=== PATIENT | female | born 1965 ===

== ENCOUNTER 2024-12-03 08:53 | Outpatient (AMB) | payer OTHER, SELFPAY ==
--- OUTSIDE RECORDS SUMMARY | 2024-01-02 11:12 | XMS_ITS | Encounter Summary ---
Author Organization Address [address] [place] [address] Care Team Providers Care Salesperson [employer] Furnishings Name Role Phone Erin Khan MD Primary Care Provider [phone] Encounter Details Date Type Department Care Team (Late st Contact Info) Description 01/02/2024 11:12 AM EDT Hospital Encounter TH HISTORIC ENCOUNTERS EASTERN CONVERSION ONLY Maria De Jesus Bingham MD [address] [place] [phone] Social History Tobacco Use Types Packs/Day Years Used Date Smoking Tobacco: Former Cigarettes Smokeless Tobacco: Never Alcohol Use Standard Drinks/Week Comments Yes 0 (1 standard drink = 0.6 oz pur e alcohol) occasional Comments No Sex and Gender Information Value [...] Care Team (Late st Contact Info) Description 01/21/2025 9:30 AM EDT Office Visit Internal Medicine - [place] [address] [place] [address] Erin Khan MD [address] [place] [address] documented as of this encounter Visit Diagnoses Not on filedocumented in this encounter Care Teams Salesperson Men'[employer] Furnishings Relationship Specialty Start Date End Date Erin Khan MD [address] [place] [address] PCP - General 10/04/21 documented as of this encounter
--- OUTSIDE RECORDS SUMMARY | 2024-01-07 11:30 | XMS_ITS | Encounter Summary ---
Author Organization [facility] Address [address] [place] [address] Care Team Providers Care Head Porter Name Role Phone Erin Khan MD Primary Care Provider [phone] Encounter Details Date Type Department Care Team (Late st Contact Info) Description 01/07/2024 11:30 AM EDT Hospital Encounter [facility] [address] [place] [phone] Social History Tobacco Use Types Packs/Day Years Used Date Smoking Tobacco: Never Smokeless Tobacco: Never Alcohol Use Standard Drinks/Week Comments Not Currently 0 (1 standard drink = 0.6 oz pur e alcohol) holidays Comments Unknown Sex and Gender Information Value Date Recorded Sex Assigned at Not on file Legal Sex Female 6:44 PM EST Gender Identity Not on file Sexual Orientation Not on file documented as of this encounter Plan of Treatment Not on file documented as of this encounter Procedures Procedure Name Priority Date/Time Associated Diagnosis Comments XR CHEST 2 VIEWS STAT 01/07/2024 11:3 6 AM EDT Acute cough documented in this encounter Results * XR Chest 2 views (01/07/2024 11:36 AM EDT) Anatomical Region Laterality Modality Chest Computed Radiogr aphy 01/07/2024 11:4 1 AM EDT Impressions 01/07/2024 11:41 AM EDT Impression: Clear lungs. Narrative 01/07/2024 11:41 AM EDT XR CHEST 2 VIEWS: 01/07/2024 11:30 AM CLINICAL HISTORY: cough x3 wks Comparisons: None available. Technique: PA and Lateral views. 2 views. Findings: The cardiac silhouette is normal in size. The mediastinal and hilar structures appear unremarkable. The lungs are well expanded without focal infiltrates identified. The visualized osseous structures appear unremarkable. Procedure Note Shane Grayson MD - 01/07/2024 XR CHEST 2 VIEWS: 01/07/2024 11:30 AM CLINICAL HISTORY: cough x3 wks Comparisons: None available. Technique: PA and Lateral views. 2 views. Findings: The cardiac silhouette is normal in size. The mediastinal and hilarstructures appear unremarkable. The lungs are well expanded without focalinfiltrates identified. The visualized osseous structures appearunremarkable. IMPRESSION: Impression: Clear lungs. Zuleyma Haney PA-C IMG DIAGNOSTIC IMAGING ORD ERABLES Final Result documented in this encounter Visit Diagnoses Not on filedocumented in this encounter Care Teams Head Porter Relationship Specialty Start Date End Date Erin Khan MD PCP - General Family Medicine 10/29/21 documented as of this encounter
--- OUTSIDE RECORDS SUMMARY | 2024-12-03 09:56 | XMS_ITS | Encounter Summary ---
Author Organization [facility] Address [address] [place] [address] Care Team Providers Care Baton Teacher Name Role Phone Erin Khan MD Primary Care Provider [phone] Reason for Visit * Reason Comments Med Change Request Encounter Details Date Type Department Care Team ([facility] st Contact Info) Description 10/30/2021 Refill [facility] [address] [facility] [address] [place] [address] Allyssa Paige PA [address] [facility] [address] [place] [address] Gastroesophageal reflux disease with esophagitis, unspecified whether hemorrhage; Cough in adult patient Social History Tobacco Use Types Packs/Day Years [...] on file documented as of this encounter Miscellaneous Notes * Telephone Encounter - Michelle Hein MA - 11/02/2021 8:51 AM EDT Needs another medication called in this one is not covered documented in this encounter Plan of Treatment Not on file documented as of this encounter Visit Diagnoses Diagnosis Gastroesophageal reflux disease with esophagitis, unspecified whether hemorrhage Cough in adult patient documented in this encounter Care Teams Baton Teacher Relationship Specialty Start Date End Date Erin Khan MD PCP - General Family Medicine 10/29/21 documented as of this encounter
--- OUTSIDE RECORDS SUMMARY | 2024-12-03 09:56 | XMS_ITS | Encounter Summary ---
Author Organization [facility] Address [address] [place] [address] Care Team Providers Care Household Worker Name Role Phone Erin Khan MD Primary Care Provider [phone] Encounter Details Date Type Department Care Team (Late st Contact Info) Description 01/07/[address] [place] [phone] Provider, Generic Social History Tobacco Use Types Packs/Day Years [...] on filedocumented in this encounter Care Teams Household Worker Relationship Specialty Start Date End Date Erin Khan MD PCP - General Family Medicine 10/29/21 documented as of this encounter
--- OUTSIDE RECORDS SUMMARY | 2024-12-03 09:56 | XMS_ITS | Clinical Summary ---
Author Organization [facility] [address] [facility] [place] [facility] Address [address] [place] [address] Phone Care Team Providers Care Power Shovel Mechanic Name Role Phone Erin Khan MD Primary Care Provider [phone] Allergies Active Allergy Reactions Criticality Noted Date Comments Clarithromycin Seizures High 06/08/2019 biaxin -SPECIFIC BRAND REACTION Ggoksadktym-Bftaoruof-Nqniuc er Anaphylaxis High 08/31/2021 Trelegy inhaler -throat closing Ipratropium 10/12/2021 Medications albuterol 2.5 mg /3 mL (0.083 %) nebulizer solution Take 3 mL (2.5 mg total) by nebulization every 6 (six) hours as needed for wheezing. Active albuterol HFA (PROAIR HFA ; PROVENTIL HFA ; VENTOLIN HFA) 90 mcg/actuation inhaler Inhale 2 puffs into the lungs every 6 (six) hours as needed for wheezing. Active buPROPion XL (WELLBUTRIN XL) 150 mg 24 hr tablet Take 1 tablet (150 mg total) by mouth daily. Active buPROPion XL (WELLBUTRIN XL) 300 mg 24 hr tablet Take 1 tablet (300 mg total) by mouth daily. Active carBAMazepine (TEGretol) 200 mg tablet 6 (six) times a day. Odd days takes 5 tabs and even days to take 6 tablets Active clindamycin (CLEOCIN T) 1 % gel Apply topically 2 (two) times a day. 023 Active lamoTRIgine (LaMICtal) 100 mg tablet 3 (three) times a day. 1 po qam 2po qhs 022 Active metFORMIN XR (GLUCOPHAGE-X R) 500 mg 24 hr tablet 1 (one) time each day. 023 Active montelukast (SINGULAIR) 10 mg tablet Take 1 tablet (10 mg total) by mouth every night at bedtime. 023 Active pantoprazole (PROTONIX) 40 mg EC tablet Take 1 tablet (40 mg total) by mouth 2 (two) times a day before breakfast and dinner. 022 Active multivit with calcium,iron, min (MULTIPLE VITAMIN, WOMENS ORAL) Take by mouth. Ac tive ipratropium-a lbuteroL (DUONEB) 0.5-2.5 mg/3 mL nebulizer solution ipratropium 0.5 mg-albuterol 3 mg (2.5 mg base)/3 mL nebulization soln 3 ml nebulizer once Active Ingrezza 40 mg capsule 1 (one) time each day. 024 Active aspirin 81 mg EC tablet Take 1 tablet (81 mg total) by mouth 1 (one) time each day. Active simvastatin (ZOCOR) 40 mg tablet TAKE 1 TABLET BY MOUTH IN THE EVENING 90 tablet 1 025 Active fenofibrate (LOFIBRA) 160 mg tablet TAKE 1 TABLET BY MOUTH DAILY 90 tablet 1 025 Active tirzepatide (Mounjaro) 7.5 mg/0.5 mL injectionIndi cations:Type 2 diabetes mellitus without complication, without long-term current use of insulin ([facility] V24, [facility] V28) Inject 0.5 mL (7.5 mg total) under the skin 1 (one) time per week. 6 mL 1 025 Active Mounjaro 7.5 mg/0.5 mL injectionIndi cations:Type 2 diabetes mellitus without complication, without long-term current use of insulin ([facility] V24, [facility] V28) INJECT 1 SYRINGE SUBCUTANEOUSLY ONCE A WEEK 12 mL 025 2024 Discontinued(R eorder) tirzepatide (Mounjaro) 7.5 mg/0.5 mL injectionIndi cations:Type 2 diabetes mellitus without complication, without long-term current use of insulin ([facility] V24, [facility] V28) Inject 0.5 mL (7.5 mg total) under the skin 1 (one) time per week. 6 mL 1 025 2024 Discontinued Active Problems Problem Noted Date Diagnosed Date Type 2 diabetes mellitus wit hout complication, without long-term current use of insulin ([facility] [employer] V24, [facility] [employer] V28) 02/17/2024 Assessment & Plan (02/17/2024 1:50 PM EST): 58 year old female with pmhx T2DM who presents to follow-up on her diabetes. She was started on mounjaro 7.5 mg qweekly at last office visit about 1 month ago. She has lost 7 lbs since then. No ASE noted with new dose. Advised to continue with current regimen, will recheck A1C at next visit. Mounjaro refilled today Encouraged to continue with lifestyle modifications. Seasonal allergies 07/23/2022 Alkaline phosphatase elevation 09/09/2021 Anemia 09/09/2021 Bipolar affective disorder in remission ([facility] [employer] V24) 08/31/2021 Chronic UTI 08/31/2021 Gastroesophageal reflux disease without esophagi tis 08/31/2021 Heart murmur 08/31/2021 Mixed hyperlipidemia 08/31/2021 Morbid obesity ([facility] [employer] V24, [employer] [employer] V28) 2021 Resolved Problems Problem Noted Date Diagnosed Date Resolved Date Prediabetes 09/09/2021 06/11/2024 Encounters Date Type Department Care Team Description 11/21/2024 Telephone Internal [facility] - [facility] [address] [place] [phone] Renu Sharpe MA 11/21/2024 Telephone Internal Medicine - [facility] [address] [place] [phone] Renu Sharpe MA 09/11/2024 Telephone Internal Medicine - [facility] [address] [place] [phone] Renu Shapre MA from Last 3 Months Immunizations Name Administration Dates Next Due Influenza Quadrivalent, 0.5m l, preservative free (Fluarix; FluLaval; Fluzone) ages 6mo and older (Afluria) 3yo and older 01/04/2022 Influenza trivalent, with pr eservative (Fluzone; Afluria) 6mo and older 01/26/2020 Moderna SARS-CoV-2 COVID-19, mRNA, LNP-S, preservative free 01/24/2021,06/19/2020,05/22/2020 Pfizer SARS-CoV-2 COVID-19, mRNA, LNP-S, preservative free 07/18/2021 Tdap Tetanus diptheria acell ular pertussis (Boostrix; Adacel) 7yo and older 01/04/2022,02/23/2012 Surgical History Surgery Date Site/Laterality Comments HYSTERECTOMY PROCEDURE:HYSTERECTOMY CHOLECYSTECTOMY PROCEDURE:CHOLECYSTECTOMY TONSILLECTOMY PROCEDURE:TONSILLECTOMY Medical History Medical History Date Comments Psychiatric disorder DX:Psychiat alanna disorder Cancer ([facility] V24, [facility] V28) DX:Cancer ([facility]);COMMENT:Uterine CA s/p compelte hysterectomy 1996 Asthma DX:Asthma GERD (gastroesophageal reflux disease) DX:GERD (gastroesophageal reflux disease) Obesity DX:Obesity Bipolar disorder ([facility] [employer] V2 4, [employer] [employer] V28) DX:Bipolar disorder ([facility]);COMMENT:Psychiatrist: Dr. Pierce, every Q3 months Hyperlipidemia DX:Hyperlipidemi a PONV (postoperative nausea a nd vomiting) Diabetes mellitus ([facility] [employer] V 24, [facility] V28) Prediabetes 09/09/2021 Family History Medical History Relation Name Comments Alzheimer's disease Father Diabetes Father Heart disease Father Hyperlipidemia Father Hypertension Father Lung disease Father Obesity Father Stroke Father Alcohol abuse Maternal Grandfather Depression Maternal Grandmother Thyroid disease Maternal Grandmother Depression Mother Hyperlipidemia Mother Hypertension Mother Liver disease Mother Mental illness Mother Obesity Mother Diabetes Paternal Grandfather Heart disease Paternal Grandfather Stroke Paternal Grandfather Cancer Paternal Grandmother Diabetes Paternal Grandmother Stroke Paternal Grandmother Breast cancer Sister 1 Mental illness Sister 1 Relation Name Status Comments Father Alive Maternal Grandfather Maternal Grandmother Mother Alive Paternal Grandfather Paternal Grandmother Sister 1 Alive Sister 2 Alive Social History Tobacco Use Types Packs/Day Years [...] not to disclose 2024 9:48 AM EST Obstetrics History Last Filed Vital Signs Vital Sign Reading Time Taken Comments Blood Pressure 129/78 06/11/2024 2:15 PM EDT Pulse 84 06/11/2024 2:15 PM EDT Temperature 36.4 C (97.6 F) 06/11/2024 2:15 PM EDT Respiratory Rate 16 05/08/2024 2:43 PM EST Oxygen Saturation 97% 06/11/2024 2:15 PM EDT Inhaled Oxygen Concentration - - Weight 88 kg (194 lb) 06/11/2024 2:15 PM EDT Height 157.5 cm (5' 2 ) 06/11/2024 2:15 PM EDT Body Mass Index 35.48 06/11/2024 2:15 PM EDT Plan of Treatment Upcoming Encounters Date Type Department Care Team (Late st Contact Info) Description 01/21/2025 9:30 AM EDT Office Visit Internal Medicine - [facility] [address] [place] [phone] Erin Khan MD [address] [place] [address] Health Maintenance Due Date Last Done Comments Diabetes: Annual Foot Exam 06/13/1977 Diabetes: Annual Retina Eye Exam 06/13/1977 Hepatitis B Vaccines (1 of 3 - 19+ 3-dose series) 06/13/1986 Pneumococcal Vaccine: 50+ Years (1 of 2 - PCV) 06/13/1986 Zoster Vaccines (1 of 2) 06/13/1986 Cervical Cancer Screening: Pap Smear 06/13/1988 Colorectal Cancer Screening: Colonoscopy 03/05/2022 HIV Screening 03/05/2022 Social Influencers of Health Screening 03/05/2022 Depression Screening 03/28/2024 01/13/2023 COVID-19 Vaccine (7 - Moderna risk season) 2024 02/04/2024, 01/15/2022, 07/18/2021, Additional history exists Influenza Vaccine (#1) 2024 , 01/04/2022, 01/26/2020 Diabetes: Blood Sugar Control Test (HGBA1C) 05/25/2025 11/23/2024, 06/11/2024, 01/09/2024, Additional history exists Diabetes: Annual Urine Albumin-Creatinine Ratio (uACR) 06/11/2025 06/11/2024 Breast Cancer Screening 08/07/2025 08/08/2023, 08/07 Diabetes: Annual GFR (Glomerular Filtration Rate) 10/22/2025 10/22/2024, 01/09/2024, 01/09/2024, Additional history exists Cholesterol Screening (Lipid Panel) 01/08/2029 01/09/2024, 01/09/2024, 12/31/2022, Additional history exists DTaP,Tdap,and Td Vaccines (3 - Td or Tdap) 01/05/2032 01/04/2022, 02/23/2012 Hepatitis C Screening Completed 01/01/2022, 022 HIB Vaccines Aged Out No longer eligi ble based on patient's age to complete this topic HPV Vaccines Aged Out No longer eligi ble based on patient's age to complete this topic Hepatitis A Vaccines Aged Out No long er eligible based on patient's age to complete this topic IPV Vaccines Aged Out No longer eligi ble based on patient's age to complete this topic MMR Vaccines Aged Out No longer eligi ble based on patient's age to complete this topic Meningococcal ACWY Vaccine Aged Out N o longer eligible based on patient's age to complete this topic Meningococcal B Vaccine Aged Out No l onger eligible based on patient's age to complete this topic RSV Immunization Patients Under 20 months Aged Out No longer eligible based on patient's age to complete this topic Varicella Vaccines Aged Out No longer eligible based on patient's age to complete this topic Medical Devices Implanted Type Area Forensic Science Technician Device Identifier Shelf Expiration Date Model / Serial / Lot Neurostimulator Non Rechrg - [id number] - [id number] Implanted:Qty: 1 on 05/08/2024 by Maria De Jesus Bingham MD at [facility] Neurostim N/A: Back [employer] 02/16/2027 [id number] / [id number] / N/A Kit Tined Lead - [id number] - [id number] Implanted:Qty: 1 on 05/08/2024 by Maria De Jesus Bingham MD at [facility] Neurostim N/A: Back [employer] 03/29/2026 [id number] / [id number] / N/A Procedures Procedure Name Priority Date/Time Associated Diagnosis Comments HEMOGLOBIN A1C Routine 11/23/2024 3:20 PM EDT Type 2 diabetes mellitus without complication, without long-term current use of insulin ([facility] V24, [facility] V28) CBC WITH AUTO DIFFERENTIAL Routine 10/22/2024 3:04 PM EDT Polypharmacy THYROID STIMULATING HORMONE Routine 10/22/2024 3:04 PM EDT Polypharmacy COMPREHENSIVE METABOLIC PANEL Routine 10/22/2024 3:04 PM EDT Polypharmacy CBC AND DIFFERENTIAL Routine 10/22/2024 3:04 PM EDT Polypharmacy CARBAMAZEPINE LEVEL, TOTAL Routine 10/22/2024 3:04 PM EDT Polypharmacy MICROALBUMIN CREATININE URINE RATIO Routine 06/11/2024 3:00 PM EDT Type 2 diabetes mellitus without complication, without long-term current use of insulin ([facility] V24, [facility] V28) MAMMOGRAM SCREENING BILATERAL 3D OLY WITH CAD Routine 08/08/2023 11:38 AM EDT Encounter for screening mammogram for malignant neoplasm of breast HM DEPRESSION SCREENING Routine 01/13/2023 LIPID PANEL Routine 12/31/2022 HEPATITIS C SCREENING Routine 01/01/2022 from Last 3 Months or Most Recently Relevant to Health Maintenance Results * Hemoglobin A1c (11/23/2024 3:20 PM EDT) Hemoglobin A1C 5.2 <5.7 % LAB CHEMISTRY METHOD 11/24/2024 2:10 AM EDT [facility] Mean Bld Glu Estim. 103 mg/dL LAB CHEMISTRY METHOD 11/24/2024 2:10 AM EDT [facility] Blood Venous blood specimen / Unknown Venipuncture / Unknown 11/23/2024 3:20 PM EDT 11/23/2024 3:20 PM EDT Narrative [facility] - 11/24/2024 2:10 AM EDT ADA Guidelines: Increased risk Diabetes Mellitus A1C 5.7 - 6.4% and Fasting Blood Glucose 100 - 125 mg/dl Diabetes Mellitus: A1C >6.5% and Fasting Blood Glucose >125 mg/dl us Erin Khan MD LAB BLOOD ORDERABLES Final Result [facility] [address] [place] [address], [place] [phone] * CBC auto differential (10/22/2024 3:04 PM EDT) WBC 4.8 4.0 - 10.5 K/mcL LAB HEMETOLOGY METHOD 10/22/2024 5:48 PM EDT [facility] RBC 4.21 4.20 - 5.40 M/mcL LAB HEMETOLOGY METHOD 10/22/2024 5:48 PM EDT [facility] Hemoglobin 12.5 12.5 - 16.0 g/dL LAB HEMETOLOGY METHOD 10/22/2024 5:48 PM EDT [facility] Hematocrit 37.5 37.0 - 47.0 % LAB HEMETOLOGY METHOD 10/22/2024 5:48 PM EDT [facility] MCV 89.0 78.0 - 100.0 FL LAB HEMETOLOGY METHOD 10/22/2024 5:48 PM EDT [facility] MCH 29.6 25.0 - 33.0 pcg LAB HEMETOLOGY METHOD 10/22/2024 5:48 PM EDT [facility] MCHC 33.3 32.0 - 36.0 g/dL LAB HEMETOLOGY METHOD 10/22/2024 5:48 PM EDT [facility] RDW 13.0 12.1 - 16.2 % LAB HEMETOLOGY METHOD 10/22/2024 5:48 PM EDT [facility] Platelets 396 150 - 450 K/mcL LAB HEMETOLOGY METHOD 10/22/2024 5:48 PM EDT [facility] MPV 7.7 7.4 - 11.4 FL LAB HEMETOLOGY METHOD 10/22/2024 5:48 PM EDT [facility] Neutrophils Relative 47.5 44.0 - 74.0 % LAB HEMETOLOGY METHOD 10/22/2024 5:48 PM EDT [facility] Lymphocytes Relative 43.1 20.0 - 48.0 % LAB HEMETOLOGY METHOD 10/22/2024 5:48 PM EDT [facility] Monocytes Relative 6.4 2.0 - 12.0 % LAB HEMETOLOGY METHOD 10/22/2024 5:48 PM EDT [facility] Eosinophils Relative 2.3 0.0 - 6.0 % LAB HEMETOLOGY METHOD 10/22/2024 5:48 PM EDT [facility] Basophils Relative 0.7 0.0 - 2.0 % LAB HEMETOLOGY METHOD 10/22/2024 5:48 PM EDT [facility] Neutrophils Absolute 2.30 1.80 - 7.80 K/mcL LAB HEMETOLOGY METHOD 10/22/2024 5:48 PM EDT [facility] Lymphocytes Absolute 2.10 1.00 - 3.20 K/mcL LAB HEMETOLOGY METHOD 10/22/2024 5:48 PM EDT [facility] Monocytes Absolute 0.30 0.00 - 0.80 K/mcL LAB HEMETOLOGY METHOD 10/22/2024 5:48 PM EDT [facility] Eosinophils Absolute 0.10 0.00 - 0.50 K/mcL LAB HEMETOLOGY METHOD 10/22/2024 5:48 PM EDT [facility] Basophils Absolute 0.00 0.00 - 0.20 K/mcL LAB HEMETOLOGY METHOD 10/22/2024 5:48 PM EDT [facility] Blood Venous blood specimen / Unknown Venipuncture / Unknown 10/22/2024 3:04 PM EDT 10/22/2024 3:04 PM EDT us Arvind Pierce MD LAB BLOOD ORDERABLES Final R esult [facility] [address] [place] [address], [place] [phone] * Thyroid stimulating hormone (10/22/2024 3:04 PM EDT) TSH 1.47 0.45 - 5.33 mcIU/mL LAB CHEMISTRY METHOD 10/22/2024 6:15 PM EDT [facility] Blood Venous blood specimen / Unknown Venipuncture / Unknown 10/22/2024 3:04 PM EDT 10/22/2024 3:04 PM EDT us Arvind Pierce MD LAB BLOOD ORDERABLES Final R esult [facility] [address] [place] [address], [place] [phone] * Carbamazepine level, total (10/22/2024 3:04 PM EDT) Pathologist [facility] Carbamazepine Level 7.5 4.0 - 12.0 mcg/mL LAB CHEMISTRY METHOD 10/22/2024 9:14 PM EDT [facility] Blood Venous blood specimen / Unknown Venipuncture / Unknown 10/22/2024 3:04 PM EDT 10/22/2024 3:04 PM EDT Arvind Pierce MD LAB BLOOD ORDERABLES Final R esult [facility] [address] [place] [address], [place] [phone] * (ABNORMAL) Comprehensive metabolic panel (10/22/2024 3:04 PM EDT) Pathologist [facility] Sodium 142 135 - 145 mmol/L LAB CHEMISTRY METHOD 10/22/2024 6:05 PM EDT [facility] Potassium 3.9 3.5 - 5.1 mmol/L LAB CHEMISTRY METHOD 10/22/2024 6:05 PM EDT [facility] Chloride 102 98 - 107 mmol/L LAB CHEMISTRY METHOD 10/22/2024 6:05 PM EDT [facility] CO2 32 24 - 32 mmol/L LAB CHEMISTRY METHOD 10/22/2024 6:05 PM EDT [facility] Anion Gap 8 5 - 14 LAB CHEMISTRY METHOD 10/22/2024 6:05 PM EDT [facility] Glucose 93 70 - 199 mg/dL LAB CHEMISTRY METHOD 10/22/2024 6:05 PM EDT [facility] BUN 11 7 - 17 mg/dL LAB CHEMISTRY METHOD 10/22/2024 6:05 PM EDT [facility] Creatinine 0.50 0.50 - 1.00 mg/dL LAB CHEMISTRY METHOD 10/22/2024 6:05 PM EDT [facility] eGFR 110 >=60 mL/min/1. 73m2 LAB CHEMISTRY METHOD 10/22/2024 6:05 PM EDT [facility] Comment:Calculation based on the Chronic Kidney Disease Epidemiology Collaboration (CKD-EPI) equation refit without adjustment for race. BUN/Creatinine Ratio 22.0(H) 12.0 - 20.0 LAB CHEMISTRY METHOD 10/22/2024 6:05 PM EDT [facility] Calcium 9.7 8.4 - 10.2 mg/dL LAB CHEMISTRY METHOD 10/22/2024 6:05 PM EDT [facility] AST (SGOT) 16 5 - 40 unit/L LAB CHEMISTRY METHOD 10/22/2024 6:05 PM EDT [facility] ALT (SGPT) 26 7 - 52 unit/L LAB CHEMISTRY METHOD 10/22/2024 6:05 PM EDT [facility] Alkaline Phosphatase 55 34 - 104 unit/L LAB CHEMISTRY METHOD 10/22/2024 6:05 PM EDT [facility] Total Protein 6.5 6.4 - 8.5 g/dL LAB CHEMISTRY METHOD 10/22/2024 6:05 PM EDT [facility] Albumin 4.5 3.5 - 5.0 g/dL LAB CHEMISTRY METHOD 10/22/2024 6:05 PM EDT [facility] Total Bilirubin 0.3 0.3 - 1.0 mg/dL LAB CHEMISTRY METHOD 10/22/2024 6:05 PM EDT [facility] Blood Venous blood specimen / Unknown Venipuncture / Unknown 10/22/2024 3:04 PM EDT 10/22/2024 3:04 PM EDT us Arvind Pierce MD LAB BLOOD ORDERABLES Final R esult [facility] [address] [place] [address], [place] [phone] * Microalbumin creatinine urine ratio (06/11/2024 3:00 PM EDT) Creatinine, Urine 48.9 mg/dL LAB CHEMISTRY METHOD 06/11/2024 10:13 PM EDT [facility] Comment:No established refer ence range. Microalb, Ur <7.0 mg/L LAB CHEMISTRY METHOD 06/11/2024 10:13 PM EDT [facility] Comment:No established refer ence range. Microalb/Creat Ratio <14 <30 mg/g creat LAB CHEMISTRY METHOD 06/11/2024 10:13 PM EDT [facility] Comment:Concentrations outsi de detection limits, unable to calculate ratio. Urine Urine specimen obtained by clean catch procedure / Unknown Non-blood Collection / Unknown 06/11/2024 3:00 PM EDT 06/11/2024 3:00 PM EDT us Erin Khan MD LAB URINE ORDERABLES Final Result [facility] [address] [place] [address], [place] [phone] * MAMMOGRAM SCREENING BILATERAL 3D OLY WITH CAD (08/08/2023 11:38 AM EDT) Anatomical Region Laterality Modality Mammography 08/04/2023 11:0 3 AM EDT Narrative 08/24/2023 4:14 PM EDT This is a summary report. The complete report is available in the patient's medical record. If you cannot access the medical record, please contact the sending organization for a detailed fax or copy. Prior mammograms are available for comparison, dated 10/22/2020 and 09/20/2019. Parenchymal pattern is stable. BI-RADS 1: Negative Routine screening recommended Report reviewed and signed by : Dr. Klaudia Yung MD on 08/24/2023 4:14 PM. Workstation Name - [id number] EXAM PERFORMED: MAMMOGRAM SCREENING BILATERAL 3-D OLY WITH CAD EXAM HISTORY: Screening COMPARISON: None TECHNIQUE: Bilateral full field digital mammography synthesized (2-D) and Tomosynthesis (3-D) was performed using standard CC and MLO projections. FINDINGS: There are no dominant mass lesions, skin thickening, or nipple retraction. No cluster of suspicious microcalcifications is seen. Small asymmetry right breast superiorly on the MLO view. BREAST DENSITY: Scattered fibroglandular densities within the breast parenchyma (25-50% fibroglandular tissue: Density B). IMPRESSION: Small right breast asymmetry on the MLO view. Recommend spot compression with targeted ultrasound as warranted. The results of this examination have been communicated to the patient through a lay letter in accordance with the Mammography Quality Standards Act. BI-RADS Category 0: Incomplete: Need Additional Imaging Evaluation The patient will be contacted by [facility] Staff to arrange for additional imaging. Session: Examination and interpretation performed during a separate session. [id number] F Report reviewed and signed by : Dr. Klaudia Yung MD on 08/08/2023 12:13 PM. Workstation Name - [id number] Procedure Note Klaudia Yung MD - 11/14/2023 This is a summary report. The complete report is available in thepatient's medical record. If you cannot access the medical record, pleasecontact the sending organization for a detailed fax or copy. Prior mammograms are available for comparison, dated 10/22/2020 and09/20/2019. Parenchymal pattern is stable. BI-RADS 1: Negative Routine screening recommended Report reviewed and signed by : Dr. Klaudia Ynug MD on 08/24/2023 4:14 PM.Workstation Name - [id number] EXAM PERFORMED: MAMMOGRAM SCREENING BILATERAL 3-D OLY WITH CAD EXAM HISTORY: Screening COMPARISON: None TECHNIQUE: Bilateral full field digital mammography synthesized (2-D) andTomosynthesis (3-D) was performed using standard CC and MLO projections. FINDINGS: There are no dominant mass lesions, skin thickening, or nipple retraction.No cluster of suspicious microcalcifications is seen. Small asymmetry right breast superiorly on the MLO view. BREAST DENSITY: Scattered fibroglandular densities within the breastparenchyma (25-50% fibroglandular tissue: Density B). IMPRESSION: Small right breast asymmetry on the MLO view. Recommend spot compressionwith targeted ultrasound as warranted. The results of this examination have been communicated to the patientthrough a lay letter in accordance with the Mammography Quality StandardsAct. BI-RADS Category 0: Incomplete: Need Additional Imaging Evaluation The patient will be contacted by [facility] Staff to arrangefor additional imaging. Session: Examination and interpretation performed during a separatesession. [id number] F Report reviewed and signed by : Dr. Klaudia Yung MD on 08/08/2023 12:13PM. Workstation Name - [id number] Erin Khan MD IMG BI PROCEDURES Final Res ult * Depression Screening (01/13/2023) Pathologist [facility] Depression Screening abstracted Historical Provider HEALTH MAINTENANCE Final Result * (ABNORMAL) Lipid panel (12/31/2022) [facility] Triglycerides 186(A) <=150 mg/dL Cholesterol 184 0 - 200 mg/dL HDL 55 37 - 92 mg/dL LDL Cholesterol 92 50 - 130 mg/dL Blood Venous blood specimen / Unknown Result [facility] Historical Provider LAB BLOOD ORDERABLES Kelly l Result * Hepatitis C Screening (01/01/2022) Pathologist [facility] Hepatitis C Screening abstracted Result [facility] Historical Provider HEALTH MAINTENANCE Final Result from Last 3 Months or Most Recently Relevant to Health Maintenance Insurance [employer] Advance Directives * Full Code - Default (Latest Code Status on File) Date Activated Date Inactivated Comments 05/08/2024 7:50 AM 05/08/2024 5:55 PM This is orde r is used when code status has not been discussed with the patient, or code status is otherwise unknown/unconfirmed To update the patient's code status, place a code status order. Do not modify or discontinue any currently active code status orders. Care Teams Power Shovel Mechanic Relationship Specialty Start Date End Date Erin Khan MD [address] [address] PCP - General 10/04/21
--- OUTSIDE RECORDS SUMMARY | 2024-12-03 09:56 | XMS_ITS | Encounter Summary ---
Author Organization [facility] Address [address] [place] [address] Care Team Providers Care Hospital Nursing Assistant Name Role Phone Erin Khan MD Primary Care Provider [phone] Encounter Details Date Type Department Care Team ([facility] st Contact Info) Description 02/23/2023 Telephone [facility]GI [facility] [address] [facility] [address] [place] [address] Allyssa Paige, JERICA [address] [facility] [address] [place], [place] [id number] Social History Tobacco Use Types Packs/Day Years [...] encounter Miscellaneous Notes * Telephone Encounter - Leisa Orellana - 02/23/2023 1:07 PM EST Patient called regarding a refill of her pantoprazole. She said it needs a new PA so that she can get the appropriate dosage again. She has been taking the 40 mg twice a day and it has been working well for her. Please obtain PA and send to [facility] documented in this encounter Plan of Treatment Not on file documented as of this encounter Visit Diagnoses Not on filedocumented in this encounter Care Teams Hospital Nursing Assistant Relationship Specialty Start Date End Date Erin Khan MD PCP - General Family Medicine 10/29/21 documented as of this encounter
--- OUTSIDE RECORDS SUMMARY | 2024-12-03 09:56 | XMS_ITS | Clinical Summary ---
Author Organization [facility] Address [address] [place] [address] Care Team Providers Care Industrial Yard Brake Coupler Name Role Phone Erin Khan MD Primary Care Provider Unav ailable Allergies Active Allergy Reactions Criticality Noted Date Comments Clarithromycin Other (See Comments) 06/08/2019 Sjkxvqbifox-Phcoejmpy-Rnkqlu Other (See Comments) 08/31/2021 Ipratropium 10/12/2021 Medications Medication Sig Dispensed Refills Start Date End Date Status carBAMazepine (TEGretol) 200 MG tablet 6 (six) times a day. Odd days takes 5 tabs and even days to take 6 tablets 0 07/25/2018 Active lamoTRIgine (LaMICtal) 100 MG tablet 3 (three) times a day. 1 po qam 2po qhs 0 06/15/2021 Active buPROPion (WELLBUTRIN XL) 300 MG 24 hr tablet Take 1 tablet (300 mg total) by mouth daily. 0 07/25/2018 Active buPROPion (WELLBUTRIN XL) 150 MG 24 hr tablet Take 1 tablet (150 mg total) by mouth daily. 0 06/15/2021 Active albuterol 108 (90 Base) MCG/ACT inhaler Inhale 2 puffs into the lungs every 6 (six) hours as needed for wheezing. 1 each 0 10/04/2021 Active famotidine (Pepcid) 20 MG tabletIndications:Pe rsistent cough Take 1 tablet (20 mg total) by mouth every evening. 30 tablet 2 10/20/2021 Active pantoprazole (PROTONIX) 40 MG tablet Take 1 tablet (40 mg total) by mouth 2 (two) times a day before breakfast and dinner. 0 11/02/2021 Active albuterol (PROVENTIL) (2.5 MG/3ML) 0.083% nebulizer solutionIndications: Mild intermittent asthma with acute exacerbation,Viral URI Take 3 mL (2.5 mg total) by nebulization every 6 (six) hours as needed for wheezing. 100 mL 2 11/09/2021 Active estradiol (ESTRACE) 0.1 MG/GM vaginal creamIndications:Rec urrent UTI,Urinary frequency,Urgency of urination,Mixed incontinence Place 1 g vaginally 3 (three) times a week. Apply pea-sized amount to vaginal opening do not use applicator 42.5 g 12 08/13/2022 Active montelukast (SINGULAIR) 10 MG tablet Take 1 tablet (10 mg total) by mouth every night at bedtime. 90 tablet 1 09/30/2022 Active clindamycin (CLINDAGEL) 1 % gel Apply topically 2 (two) times a day. 60 g 2 01/13/2023 Active cefpodoxime (VANTIN) 200 MG tablet Take 1 tablet (200 mg total) by mouth 2 (two) times a day. 0 Active fenofibrate (TRIGLIDE) 160 MG tabletIndications:Mi xed hyperlipidemia TAKE 1 TABLET BY MOUTH DAILY 90 tablet 1 08/08/2023 Active simvastatin (ZOCOR) tablet 40 mgIndications:Mixed hyperlipidemia TAKE 1 TABLET BY MOUTH IN THE EVENING 90 tablet 1 08/08/2023 Active trospium ER (SANTURA XR) 60 MG [id number]:Urin lacey frequency,Urgency of urination Take 1 caplet by mouth daily. 90 capsule 3 09/08/2023 Active metFORMIN (GLUCOPHAGE-XR) ER 24 hr tablet 500 mg Take 1 tablet (500 mg total) by mouth every morning with breakfast. 90 tablet 1 12/05/2023 Active tirzepatide (Mounjaro) 7.5 MG/0.5MLIndications: Type 2 diabetes mellitus without complication, without long-term current use of insulin (HCC) Inject 0.5 mL (7.5 mg total) under the skin every 7 days. 2 mL 0 01/18/2024 Active benzonatate (Tessalon Perles) 100 MG capsuleIndications:A cute upper respiratory infection Take 1 capsule (100 mg total) by mouth 3 (three) times a day as needed for cough. 21 capsule 0 01/18/2024 Active Active Problems Problem Noted Date Diagnosed Date Type 2 diabetes mellitus wit hout complication, without long-term current use of insulin 08/04/2023 Seasonal allergies 07/23/2022 Alkaline phosphatase elevation 09/09/2021 Anemia 09/09/2021 Chronic UTI 08/31/2021 Heart murmur 08/31/2021 Morbid obesity 08/31/2021 Gastroesophageal reflux disease without esophagi tis 08/31/2021 Mixed hyperlipidemia 08/31/2021 Bipolar affective disorder in remission 09/01/19 22 Resolved Problems Problem Noted Date Diagnosed Date Resolved Date Prediabetes 09/09/2021 08/04/2023 Immunizations Name Administration Dates Next Due Covid-19 (Moderna 12+) 100mcg/0.5mL dosage 01/24,06/19/2020,05/22/2020 Covid-19 (Pfizer 12+) Bivalent 01/15/2022 Covid-19 (Pfizer) Dilution Required 07/18/2021 Influenza Quad (Fluarix/Fluz one/FluLaval) 0.5mL (SD-IIV4) 01/04/2022 Influenza Trivalent (Fluzone /Afluria) 5.0mL Multi-dose Vial 01/26/2020 Tdap 01/04/2022,02/23/2012 Family History Medical History Relation Name Comments [...] Years Used Date Smoking Tobacco: Former Cigarettes 0.5 1 Smokeless Tobacco: Never Alcohol Use Standard Drinks/Week Comments Yes 0 (1 standard drink = 0.6 oz pur e alcohol) social Sex and Gender Information Value Date Recorded Sex Assigned at Female 10/04/2021 8:16 AM EDT Gender Identity Female 01/03/2024 9:57 AM EDT Sexual Orientation Not on file Job Start Date Occupation Industry Not on file Not on file Not on file Last Filed Vital Signs Vital Sign Reading Time Taken Comments Blood Pressure 120/72 01/18/2024 1:21 PM EDT Pulse 90 01/18/2024 1:21 PM EDT Temperature 36.3 C (97.3 F) 01/18/2024 1:21 PM EDT Respiratory Rate 20 10/04/2021 7:38 AM EDT Oxygen Saturation 93% 01/18/2024 1:21 PM EDT Inhaled Oxygen Concentration - - Weight 84.8 kg (187 lb) 01/18/2024 1:21 PM EDT Height 157.5 cm (5' 2 ) 01/18/2024 1:21 PM EDT Body Mass Index 34.2 01/18/2024 1:21 PM EDT Plan of Treatment Health Maintenance Due Date Last Done Comments Hepatitis B Vaccines (1 of 3 - 3-dose series) 1965 Pneumococcal Vaccine (1 of 2 - PCV) 06/13/1973 Diabetes: Eye Exam (No Retinopathy) 06/13/1985 Diabetes: Foot Exam 06/13/1985 Diabetes: Microalbumin Test 06/13/1985 Cervical Cancer Screening (Pap Smear) 06/13/1988 Colon Cancer Screening (Colonoscopy) 06/13/2012 Shingrix-Zoster Vaccine (1 of 2) 06/13/2017 Hemoglobin A1C Due 07/09/2024 01/09/2024, 0 08/02/2023, 04/18/2023, Additional history exists BMI Counseling 08/03/2024 08/04/2023, 04/2 10/2022, 09/09/2021, Additional history exists COVID-19 Vaccine ( season) 2024 01/15/2022, 07/18/2021, 01/24/2021, Additional history exists Influenza Vaccine (#1) 2024 01/04/2022, 2019 Depression Screening 01/17/2025 01/18/2024, 01/13/2023, 08/31/2021 Preventative Health Evaluation 01/17/2025 01/18/2024, 01/18/2024, 01/13/2023, Additional history exists Breast Cancer Screening (Mammogram) 08/07/2025 08/08/2023 DTap / Tdap / Td (3 - Td or Tdap) 01/05/2032 01/04/2022, 02/23/2012 Hepatitis C Screening Completed 01/01/2022 RSV Ped < 20 months Aged Out No longe r eligible based on patient's age to complete this topic Care Teams Industrial Yard Brake Coupler Relationship Specialty Start Date End Date Erin Khan MD PCP - General Internal Medicine 10/04/21
--- OUTSIDE RECORDS SUMMARY | 2024-12-03 09:56 | XMS_ITS | Encounter Summary ---
Author Organization [facility] Address [address] [place] [address] Care Team Providers Care Drug Abuse Technician Name Role Phone Erin Khan MD Primary Care Provider [phone] Encounter Details Date Type Department Care Team (Late st Contact Info) Description 01/07/2024 Scanned Document [address] [place] [phone] Provider, Generic Social History Tobacco Use Types [...] on filedocumented in this encounter Care Teams Drug Abuse Technician Relationship Specialty Start Date End Date Erin Khan MD PCP - General Family Medicine 10/29/21 documented as of this encounter
--- OUTSIDE RECORDS SUMMARY | 2024-12-03 09:56 | XMS_ITS | Encounter Summary ---
Author Organization [facility] Address [address] [place] [address] Care Team Providers Care Ash Pit Worker Name Role Phone Mónica Diaz MD Primary Care Provider [phone] Erin Khan MD Primary Care Provider [phone] Encounter Details Date Type Department Care Team (Late st Contact Info) Description 04/09/2019 Scanned Document [facility] General Surgery [address] [phone] Gastroenterology, Scan Social History Tobacco Use Types Packs/Day Years Used Date Smoking Tobacco: Never Assessed Comments Unknown Sex and Gender Information Value Date Recorded Sex Assigned at Not on file Legal Sex Female 6:44 PM EST Gender Identity Not on file Sexual Orientation Not on file documented as of this encounter Plan of Treatment Not on file documented as of this encounter Visit Diagnoses Not on filedocumented in this encounter Care Teams Ash Pit Worker Relationship Specialty Start Date End Date Mónica Diaz MD [address] [place] [address] PCP - General 05/30/19 10/28/21 Erin Khan MD [address] [place] [address] PCP - General Family Medicine 10/29/21 documented as of this encounter
--- OUTSIDE RECORDS SUMMARY | 2024-12-03 09:56 | XMS_ITS | Clinical Summary ---
Author Organization [facility] Address [address] [place] [address] Care Team Providers Care Domestic Violence Advocate Name Role Phone Erin Khan Primary Care Provider [phone] Allergies Active Allergy Reactions Criticality Noted Date Comments Clarithromycin Other (see comments) 06/08/2019 Npuuigexidk-Axtfggyfa-Wheoslso Other (see comments) 11/12/2021 Ipratropium 10/12/2021 Medications albuterol 2.5 mg /3 mL (0.083 %) nebulizer solution albuterol sulfate 2.5 mg/3 mL (0.083 %) solution for nebulization 3 ml nebulizer once 9 Active albuterol 2.5 mg /3 mL (0.083 %) nebulizer solution INHALE CONTENTS OF 1 VIAL VIA NEBULIZER EVERY 6 HOURS NEEDED FOR WHEEZING 2 Active albuterol HFA 90 mcg/actuation inhaler ProAir HFA 90 mcg/actuation aerosol inhaler TAKE 2 PUFFS BY MOUTH EVERY 4 TO 6 HOURS NEEDED 9 Active albuterol HFA 90 mcg/actuation inhaler INHALE 2 PUFFS INTO THE LUNGS EVERY 6 HOURS NEEDED FOR WHEEZE 2 Active buPROPion XL (WELLBUTRIN XL) 150 mg 24 hr tablet Take 150 mg by mouth. 2 Active buPROPion XL (WELLBUTRIN XL) 300 mg 24 hr tablet Take 300 mg by mouth. 9 Active carBAMazepine (TEGretol) 200 mg tablet 6 (six) times a day. 2 tabs qam 4tabs qhs 9 Active fenofibrate (TRIGLIDE) 160 mg tablet 2 Active lamoTRIgine (LaMICtal) 100 mg tablet 3 (three) times a day. 2 Active metFORMIN XR 500 mg 24 hr tablet 2 Active famotidine (PEPCID) 40 mg tablet Take 40 mg by mouth. 2 Active gabapentin (NEURONTIN) 100 mg capsule 2 (two) times a day. 2 Active nitrofurantoin (MACRODANTIN) 100 mg capsule 2 Active pantoprazole (PROTONIX) 40 mg EC tablet 2 (two) times a day. 2 Active Active Problems Problem Noted Date Diagnosed Date Allergic rhinitis 11/12/2021 Assessment & Plan (11/12/2021 11:25 AM EDT): Patient with a history of allergic rhinitis. She has gotten allergy shots in the past. She will continue on her Flonase for now we may need to get her reevaluated in the future. Laryngopharyngeal reflux 11/12/2021 Assessment & Plan (02/12/2022 8:41 AM EST): Patient with significant laryngal pharyngeal reflux. She had a pH probe which showed significant reflux events. She is scheduled to be seen by bariatric surgeon as general surgery thought that a straight fundoplication would be too risky for her. Should be considered for a more extensive procedure by the bariatric surgeon. If this is done successfully I believe will help her quite a bit. In the meantime patient will continue on her current regimen as she is doing better. Assessment & Plan (11/12/2021 11:23 AM EDT): Patient with history of significant reflux. I believe she has some degree of laryngal pharyngeal reflux as well as her GERD. Patient was evaluated in the past thought to be a candidate for fundoplication. This occurred just before COVID series she never had any procedures performed. She apparently has had esophagoscopy's which did reveal esophagitis as well. I believe the patient would be a candidate for fundoplication based on her history alone although we would like to get manometry studies done to see if this is the case. I think this could have a major impact on her coughing. Patient will continue on her current medications I would like to have her add alginate product either Gaviscon with alginate or reflux Gourmet both of which are available online on [employer]. Patient can take a teaspoon of either 1 of these after every meal and prior to bed. I will get the patient scheduled to see our GI physicians for further work-up. She may be a candidate for fundoplication. Asthma 11/12/2021 Assessment & Plan (11/12/2021 11:26 AM EDT): Patient with a diagnosis of asthma. The patient does use albuterol inhaler and does give herself respiratory treatments. She is being followed by her day habilitation specialist in this regard. Chronic cough 11/12/2021 Assessment & Plan (02/12/2022 8:42 AM EST): Patient with history of chronic cough which most likely is secondary to significant reflux. She is in a quiescent period right now she will continue with her current regimen. She will be considered for fundoplication by bariatric surgeon in the future. Assessment & Plan (11/12/2021 11:21 AM EDT): Patient with a history of chronic cough this been going on for several years. She has episodes of intermittent voice loss as well where she will lose her voice for up to 6 months at a time. Patient's current episode started in September. This started with an upper respiratory infection. Patient has a history of significant GERD has been found to have esophagitis she is currently on 40 mg of famotidine twice a day and 40 mg of pantoprazole twice daily. She was given steroids with no improvement in her cough. I believe the patient has significant reflux which is probably a major contributor to her cough. Like to have her seen by her GI physicians I think she needs to have a manometry study performed it may be a candidate for fundoplication. Patient states this was suggested to her in the past just prior to COVID starting. The GI doctor she was working with at that time has retired. We will get her into work with our GI docs. Patient does have some degree of hoarseness and does have a thickening in the anterior portion of both vocal folds greater on the right side. I think this is secondary to miss use stimulated by the reflux. I would like to have her work with our speech pathologist to improve breathing and laryngeal efficiency and hopefully resolution of these laryngeal lesions. 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 She did see her GI physician and is going to be evaluated by bariatric surgeon be considered for a procedure that would ultimately tighten up the lower esophageal sphincter. Overall she is doing better voice quality is clear the thickening of the anterior portion of the vocal folds has resolved. I recommend the patient continue on her reflux medication and continue to do her vocal exercises. She will be following up with her bariatric surgeon in a few months. Assessment & Plan (11/12/2021 11:23 AM EDT): Patient with significant muscle tension dysphonia. She is responding to irritation from the reflux. She has developed thickening of the anterior portion of both true vocal folds secondary to vocal misuse and irritation from reflux. I will have her work with our speech pathologist to improve breathing and laryngeal efficiency. Lesion of true vocal cord 11/12/2021 Assessment & Plan (02/12/2022 8:40 AM EST): Patient did have a thickening of the anterior portion of both true vocal folds this has resolved with her reflux medications as well as her voice therapy exercises. I encouraged her to continue on these exercises. Assessment & Plan (11/12/2021 11:24 AM EDT): Patient does have a thickening in the anterior portion of both true vocal folds I believe is secondary to misuse. She has decreased wave motion of the anterior third of both vocal folds. These do not appear to be papillomatous in fact there appears to be some slight hyperkeratosis to the lesions. I like to see these clear up with voice therapy and treatment of her reflux. If they do not resolve we would consider direct laryngoscopy biopsy and KTP laser ablation of these lesions. I like to have her follow-up with me in about 3 months time to evaluate the lesions once again. Family History Medical History Relation Comments Cancer Father Diabetes Father Lung disease Father Stroke Father Thyroid disease Maternal Grandmother Cancer Mother Hyperlipidemia Mother Liver disease Mother Relation Status Comments Father Maternal Grandmother Mother Social History Tobacco Use Types Packs/Day Years Used Date Smoking Tobacco: Never Smokeless Tobacco: Never Alcohol Use Standard Drinks/Week Comments Not Currently 0 (1 standard drink = 0.6 oz pur e alcohol) occasional wine Education Answer Date Recorded What is the highest level of school you have completed or the highest degree you have received? 12th grade 12/18/2021 Comments Unknown Sex and Gender Information Value Date Recorded Sex Assigned at Not on file Legal Sex Female 9:23 AM EDT Gender Identity Not on file Sexual Orientation Not on file Last Filed Vital Signs Vital Sign Reading Time Taken Comments Blood Pressure 134/78 02/12/2022 8:09 AM EST Pulse 86 02/12/2022 8:09 AM EST Temperature - - Respiratory Rate - - Oxygen Saturation - - Inhaled Oxygen Concentration - - Weight 108 kg (238 lb) 02/12/2022 8:09 AM EST Height 157.5 cm (5' 2 ) 02/12/2022 8:09 AM EST Body Mass Index 43.53 02/12/2022 8:09 AM EST Plan of Treatment Health Maintenance Due Date Last Done Comments Breast Cancer Screening 1967 CT Colonography 1967 Colonoscopy 1967 Colorectal Cancer Screening 1967 FIT-DNA (Cologuard) 1967 FIT 1967 FOBT 1965 Flex Sigmoidoscopy - 5y 1967 HIV Screening 1967 Hepatitis B Vaccines (1 of 3 - 19+ 3-dose series) 06/13/1986 Pap Smear 06/13/1988 Cervical Cancer Screening 06/13/1997 HPV/Cotest 06/13/1997 Pneumococcal Vaccine, 50+ Years (1 of 1 - PCV) 06/13/2017 Zoster Vaccines (1 of 2) 06/13/2017 COVID-19 Vaccine ( - season) 2024 01/15/2022, 07/18/2021, 01/24/2021, Additional history exists Influenza Vaccine (#1) 2024 01/04/2022, 2019 DTaP,Tdap,and Td Vaccines (3 - Td or Tdap) 01/05/2032 01/04/2022, 02/23/2012 HPV Vaccines Aged Out No longer eligi ble based on patient's age to complete this topic Hepatitis A Vaccines Aged Out No long er eligible based on patient's age to complete this topic MMR Vaccines Aged Out No longer eligi ble based on patient's age to complete this topic Meningococcal Vaccine Aged Out No jos jeronimo eligible based on patient's age to complete this topic Insurance R Care Teams Domestic Violence Advocate Relationship Specialty Start Date End Date Erin Khan PCP - General Family Medicine 02/12/22
--- OUTSIDE RECORDS SUMMARY | 2024-12-03 09:56 | XMS_ITS | Encounter Summary ---
Author Organization [facility] Address [address] [place] [address] Care Team Providers Care Automobile Carpets Molder Name Role Phone Erin Khan MD Primary Care Provider [phone] Encounter Details Date Type Department Care Team (Late st Contact Info) Description 11/05/2021 Scanned Document [facility] [address] [place] [address] Provider, MD Damien [address] [place] [id number] Social History Tobacco Use Types Packs/Day Years [...] on filedocumented in this encounter Care Teams Automobile Carpets Molder Relationship Specialty Start Date End Date Erin Khan MD PCP - General Family Medicine 10/29/21 documented as of this encounter
--- OUTSIDE RECORDS SUMMARY | 2024-12-03 09:56 | XMS_ITS ---
Author Name [facility] Organization Unknown Results Test Name/Text Value Interpretation Date Range Source Est. average glucose Bld gHb Est-mCnc 103.0 mg/dL 11/24/2024 [facility] HbA1c MFr Bld 5.2 % 11/24/2024 - 5.7 [facility] Est. average glucose Bld gHb Est-mCnc 100.0 mg/dL Normal 06/12/2024 [facility] HbA1c MFr Bld 5.1 % Normal 06/12/2024 - 5.7 [facility] Creat Ur-mCnc 48.9 mg/dL Normal 06/12/2024 [facility] Microalbumin/Creat Ur <14.0 mg/g creat Normal 06/12/2024 - 30 [facility] Microalbumin Ur-mCnc <7.0 mg/L Normal 06/12/2024 [facility] Glucose Bld-mCnc 101.0 mg/dL Normal 05/08/2024 70 - 199 [facility] LAMOTRIGINE 2.3 Normal 01/12/2024 [facility] TSH SerPl DL<=0.005 mIU/L-aCnc 0.93 uIU/mL Normal 01/09/2024 0.45 - 5.33 [facility] BUN SERPL MCNC 11.0 mg/dL Normal 01/09/2024 7 - 17 [facility] AST SERPL CCNC 21.0 U/L Normal 01/09/2024 5 - 40 [facility] POTASSIUM SERPL SCNC 3.7 mmol/L Normal 01/09/2024 3.5 - 5 .1 [facility] SODIUM SERPL SCNC 140.0 mmol/L Normal 01/09/2024 135 - 14 5 [facility] GLUCOSE P FAST SERPL MCNC 97.0 mg/dL Normal 01/09/2024 70 - 99 [facility] ALBUMIN SERPL BCG MCNC 4.2 g/dL Normal 01/09/2024 3.5 - 5 [facility] BILIRUB SERPL MCNC 0.3 mg/dL Normal 01/09/2024 0.3 - 1 [facility] HCO3 SER SCNC 31.0 mmol/L Normal 01/09/2024 24 - 32 [facility] CREAT SERPL MCNC 0.6 mg/dL Normal 01/09/2024 0.5 - 1 [facility] Glomerular filtration rate/1.73 sq M. predicted 105.0 Normal 01/09/2024 60 - [facility] ALP SERPL-CCNC 72.0 U/L Normal 01/09/2024 34 - 104 [facility] PROT SERPL MCNC 6.9 g/dL Normal 01/09/2024 6.4 - 8.5 [facility] ANION GAP SERPL SCNC 9.0 mmol/L Normal 01/09/2024 5 - 14 [facility] ALT SERPL CCNC 31.0 U/L Normal 01/09/2024 7 - 52 [facility] CALCIUM SERPL MCNC 9.3 mg/dL Normal 01/09/2024 8.4 - 10.2 [facility] CHLORIDE SERPL SCNC 100.0 mmol/L Normal 01/09/2024 98 - 1 07 [facility] CARBAMAZEPINE SERPL MCNC 3.3 ug/mL Below low normal 01/09/2024 4 - 12 [facility] EOSINOPHIL NFR BLD AUTO 6.0 % Normal 01/09/2024 0 - 6 [facility] HCT VFR BLD AUTO 37.5 % Normal 01/09/2024 37 - 47 [facility] EOSINOPHIL NO. BLD AUTO 0.5 K/uL Normal 01/09/2024 0 - 0.5 [facility] WBC NO. BLD AUTO 8.0 K/uL Normal 01/09/2024 4 - 10.5 CT [facility] PMV BLD AUTO 7.1 fL Below low normal 01/09/2024 7.4 - 11. 4 [facility] BASOPHILS IN BLOOD BY AUTOMATED COUNT 0.0 K/uL Normal 01/09/2024 0 - 0.2 [facility] RBC NO. BLD AUTO 4.35 M/uL Normal 01/09/2024 4.2 - 5.4 CT [facility] RDW RBC AUTO RTO 13.3 % Normal 01/09/2024 12.1 - 16.2 [facility] MONOCYTES NO. BLD AUTO 0.7 K/uL Normal 01/09/2024 0 - 0.8 [facility] MCHC RBC AUTO MCNC 34.1 g/dL Normal 01/09/2024 32 - 36 [facility] BASOPHILS NFR BLD AUTO 0.6 % Normal 01/09/2024 0 - 2 [facility] DIFFERENTIAL TYPE AUTOMATED Normal 01/09/2024 [facility] PLATELET NO. BLD AUTO 504.0 K/uL Above high normal 01/09/2024 150 - 450 [facility] HGB BLD MCNC 12.8 g/dL Normal 01/09/2024 12.5 - 16 [facility] MONOCYTES NFR BLD AUTO 8.8 % Normal 01/09/2024 2 - 12 [facility] LYMPHOCYTES NFR BLD AUTO 23.4 % Normal 01/09/2024 20 - 48 [facility] NEUTROPHILS NFR BLD AUTO 61.2 % Normal 01/09/2024 44 - 74 [facility] MCH RBC QN AUTO 29.4 pg Normal 01/09/2024 25 - 33 [facility] MCV RBC AUTO 86.2 fL Normal 01/09/2024 78 - 100 [facility] LYMPHOCYTES NO. BLD AUTO 1.9 K/uL Normal 01/09/2024 1 - 3.2 [facility] NEUTROPHILS NO. BLD AUTO 4.9 K/uL Normal 01/09/2024 1.8 - 7.8 [facility] Hgb A1c MFr Bld HPLC 5.6 % Normal 01/09/2024 - 5.7 [facility] TRIGL SERPL-MCNC 113.0 mg/dL Normal 01/09/2024 - 150 [facility] CHOLEST SERPL-MCNC 134.0 mg/dL Normal 01/09/2024 0 - 200 [facility] HDLC SERPL-MCNC 58.0 mg/dL Normal 01/09/2024 37 - 92 [facility] LDLc SerPl Calc-mCnc 53.0 mg/dL Normal 01/09/2024 50 - 13 0 [facility] TSH SerPl DL<=0.005 mIU/L-aCnc 1.52 uIU/mL Normal 10/04/2023 0.45 - 5.33 [facility] ANION GAP SERPL SCNC 12.0 mmol/L Normal 10/04/2023 5 - 14 [facility] ALT SERPL CCNC 31.0 U/L Normal 10/04/2023 7 - 52 [facility] ALP SERPL-CCNC 49.0 U/L Normal 10/04/2023 34 - 104 [facility] PROT SERPL MCNC 6.6 g/dL Normal 10/04/2023 6.4 - 8.5 [facility] CALCIUM SERPL MCNC 9.6 mg/dL Normal 10/04/2023 8.4 - 10.2 [facility] POTASSIUM SERPL SCNC 4.0 mmol/L Normal 10/04/2023 3.5 - 5 .1 [facility] HCO3 SER SCNC 28.0 mmol/L Normal 10/04/2023 24 - 32 CTT [facility] Glomerular filtration rate/1.73 sq M. predicted 110.0 Normal 10/04/2023 60 - [facility] GLUCOSE SERPL MCNC 103.0 mg/dL Normal 10/04/2023 70 - 199 [facility] BUN SERPL MCNC 13.0 mg/dL Normal 10/04/2023 7 - 17 CTT HS SODIUM SERPL SCNC 144.0 mmol/L Normal 10/04/2023 135 - 14 5 [facility] AST SERPL CCNC 21.0 U/L Normal 10/04/2023 5 - [facility] 0.5 mg/dL Normal 10/04/2023 0.5 - 1 [facility] CHLORIDE SERPL SCNC 104.0 mmol/L Normal 10/04/2023 98 - 1 07 [facility] ALBUMIN SERPL BCG MCNC 4.5 g/dL Normal 10/04/2023 3.5 - 5 [facility] BILIRUB SERPL MCNC 0.2 mg/dL Below low normal 10/04/2023 0.3 - 1 [facility] MONOCYTES NFR BLD AUTO 7.6 % Normal 10/04/2023 2 - 12 [facility] NEUTROPHILS NO. BLD AUTO 3.4 K/uL Normal 10/04/2023 1.8 - 7.8 [facility] MCHC RBC AUTO MCNC 34.1 g/dL Normal 10/04/2023 32 - 36 [facility] WBC NO. BLD AUTO 6.0 K/uL Normal 10/04/2023 4 - 10.5 CT [facility] MCH RBC QN AUTO 29.6 pg Normal 10/04/2023 25 - 33 CTT HS EOSINOPHIL NFR BLD AUTO 2.5 % Normal 10/04/2023 0 - 6 [facility] LYMPHOCYTES NFR BLD AUTO 32.2 % Normal 10/04/2023 20 - 48 [facility] HCT VFR BLD AUTO 37.5 % Normal 10/04/2023 37 - 47 [facility] HGB BLD MCNC 12.8 g/dL Normal 10/04/2023 12.5 - 16 [facility] RDW RBC AUTO RTO 13.6 % Normal 10/04/2023 12.1 - 16.2 [facility] MCV RBC AUTO 86.6 fL Normal 10/04/2023 78 - 100 [facility] PMV BLD AUTO 8.2 fL Normal 10/04/2023 7.4 - 11.4 [facility] DIFFERENTIAL TYPE AUTOMATED Normal 10/04/2023 C [facility]S RBC NO. BLD AUTO 4.33 M/uL Normal 10/04/2023 4.2 - 5.4 CT [facility] BASOPHILS NFR BLD AUTO 0.5 % Normal 10/04/2023 0 - 2 [facility] NEUTROPHILS NFR BLD AUTO 57.2 % Normal 10/04/2023 44 - 74 [facility] LYMPHOCYTES NO. BLD AUTO 1.9 K/uL Normal 10/04/2023 1 - 3.2 [facility] EOSINOPHIL NO. BLD AUTO 0.2 K/uL Normal 10/04/2023 0 - 0.5 [facility] BASOPHILS IN BLOOD BY AUTOMATED COUNT 0.0 K/uL Normal 10/04/2023 0 - 0.2 [facility] MONOCYTES NO. BLD AUTO 0.5 K/uL Normal 10/04/2023 0 - 0.8 [facility] PLATELET NO. BLD AUTO 455.0 K/uL Above high normal 10/04/2023 150 - 450 [facility] CARBAMAZEPINE SERPL MCNC 8.6 ug/mL Normal 10/04/2023 4 - 12 [facility] Hgb A1c MFr Bld HPLC 5.6 % Normal 08/02/2023 - 5.7 [facility] TSH SerPl DL<=0.005 mIU/L-aCnc 1.78 uIU/mL Normal 04/19/2023 0.45 - 5.33 [facility] CARBAMAZEPINE SERPL MCNC 8.4 ug/mL Normal 04/19/2023 4 - 12 [facility] PLATELET NO. BLD AUTO 455.0 K/uL Above high normal 04/19/2023 150 - 450 [facility] LYMPHOCYTES NFR BLD AUTO 24.0 % Normal 04/19/2023 20 - 48 [facility] MCHC RBC AUTO MCNC 34.1 g/dL Normal 04/19/2023 32 - 36 [facility] HCT VFR BLD AUTO 37.3 % Normal 04/19/2023 37 - 47 [facility] RDW RBC AUTO RTO 14.0 % Normal 04/19/2023 12.1 - 16.2 [facility] PMV BLD AUTO 7.9 fL Normal 04/19/2023 7.4 - [facility]. BLD AUTO 0.2 K/uL Normal 04/19/2023 0 - 0.5 [facility] BASOPHILS IN BLOOD BY AUTOMATED COUNT 0.1 K/uL Normal 04/19/2023 0 - 0.2 [facility] NEUTROPHILS NFR BLD AUTO 67.3 % Normal 04/19/2023 44 - 74 [facility] DIFFERENTIAL TYPE AUTOMATED Normal 04/19/2023 C [facility]S LYMPHOCYTES NO. BLD AUTO 2.4 K/uL Normal 04/19/2023 1 - 3.2 [facility] HGB BLD MCNC 12.7 g/dL Normal 04/19/2023 12.5 - 16 [facility] WBC NO. BLD AUTO 10.1 K/uL Normal 04/19/2023 4 - 10.5 CT [facility] MONOCYTES NO. BLD AUTO 0.6 K/uL Normal 04/19/2023 0 - 0.8 [facility] BASOPHILS NFR BLD AUTO 0.6 % Normal 04/19/2023 0 - 2 [facility] MCV RBC AUTO 83.5 fL Normal 04/19/2023 78 - 100 [facility] EOSINOPHIL NFR BLD AUTO 1.8 % Normal 04/19/2023 0 - 6 [facility] MONOCYTES NFR BLD AUTO 6.3 % Normal 04/19/2023 2 - 12 [facility] MCH RBC QN AUTO 28.5 pg Normal 04/19/2023 25 - 33 CTT HS NEUTROPHILS NO. BLD AUTO 6.8 K/uL Normal 04/19/2023 1.8 - 7.8 [facility] RBC NO. BLD AUTO 4.47 M/uL Normal 04/19/2023 4.2 - 5.[facility] MCNC 0.2 mg/dL Below low normal 04/19/2023 0.3 - 1 [facility] BUN SERPL MCNC 12.0 mg/dL Normal 04/19/2023 7 - 17 CTT HS GLUCOSE SERPL MCNC 115.0 mg/dL Normal 04/19/2023 70 - 199 [facility] CREAT SERPL MCNC 0.6 mg/dL Normal 04/19/2023 0.5 - 1 [facility] CHLORIDE SERPL SCNC 102.0 mmol/L Normal 04/19/2023 98 - 1 07 [facility] ANION GAP SERPL SCNC 10.0 mmol/L Normal 04/19/2023 5 - 14 [facility] HCO3 SER SCNC 29.0 mmol/L Normal 04/19/2023 24 - 32 [facility] ALT SERPL CCNC 48.0 U/L Normal 04/19/2023 7 - 52 [facility] AST SERPL CCNC 25.0 U/L Normal 04/19/2023 5 - 40 [facility] SODIUM SERPL SCNC 141.0 mmol/L Normal 04/19/2023 135 - 14 5 [facility] Glomerular filtration rate/1.73 sq M. predicted 106.0 Normal 04/19/2023 60 - [facility] CALCIUM SERPL MCNC 9.4 mg/dL Normal 04/19/2023 8.4 - 10.2 [facility] POTASSIUM SERPL SCNC 3.4 mmol/L Below low normal 04/19/2023 3.5 - 5.1 [facility] PROT SERPL MCNC 7.3 g/dL Normal 04/19/2023 6.4 - 8.5 [facility] ALBUMIN SERPL BCG MCNC 4.4 g/dL Normal 04/19/2023 3.5 - 5 [facility] ALP SERPL-CCNC 62.0 U/L Normal 04/19/2023 34 - 104 [facility] SM Hgb A1c MFr Bld HPLC 6.0 % Above high normal 04/19/2023 - 5.7 [facility] History of Medication Use Medication Directions Dispensed Refills Start Date End Date Status oxyCODONE (ROXICODONE) 5 mg immediate release tablet Take 1 tablet (5 mg total) by mouth every 4 (four) hours if needed for severe pain for up to 1 day. Max Daily Amount: 30 mg 5 05/10/19 25 active acetaminophen (TYLENOL) 325 mg tablet Take 2 tablets (650 mg total) by mouth every 6 (six) hours if needed for mild pain for up to 10 days. 5 active diphenhydrAMINE (BENADRYL) injection 12.5 mg 12.5 mg, intravenous, Once as needed, itching, nausea, vomiting, Starting on 05/08/24 at 1346, For 1 dose, Recovery (only) 5 active HYDROmorphone (DILAUDID) injection 0.2 mg 0.2 mg, intravenous, Every 15 min PRN, moderate pain, Starting on 05/08/24 at 1346, For 4 doses, Recovery (only), For pain (4-6). DO NOT EXCEED 2MG active HYDROmorphone (DILAUDID) injection 0.5 mg 0.5 mg, intravenous, Every 15 min PRN, severe pain, Starting on 05/08/24 at 1346, For 4 doses, Recovery (only), For pain (7-10). 5 active meperidine (PF) (DEMEROL) 25 mg/mL injection 12.5 mg 12.5 mg, intravenous, Every 30 min PRN, shivering, Starting on 05/08/24 at 1346, For 2 doses, Recovery (only), Infuse over 5 minutes. 5 active ondansetron (PF) (ZOFRAN) injection 4 mg 4 mg, intravenous, Once as needed, nausea, vomiting, Starting on 05/08/24 at 1346, For 1 dose, Recovery (only), Infuse over 2 minutes. Administer 1st unless given in OR then give dexamethasone 5 active orphenadrine (NORFLEX) injection 30 mg 30 mg, intravenous, Once as needed, muscle spasms, Starting on Tue05/08/24 at 1346, For 1 dose, Recovery (only) 5 active tirzepatide (Mounjaro) 7.5 mg/0.5 mL injection Inject 0.5 mL (7.5 mg total) under the skin 1 (one) time per week. 4 02/17/20 24 active azithromycin 250 mg tablet Take 2 tablets (500 mg) on Day 1, followed by 1 tablet (250 mg) once daily on Days 2 through 5. 4 01/24/20 24 completed azithromycin (Zithromax Z-Twan) 250 MG tablet Take 2 tablets (500 mg) on Day 1, followed by 1 tablet (250 mg) once daily on Days 2 through 5. 4 01/24/20 24 active benzonatate (Tessalon Perles) 100 MG capsule Take 1 capsule (100 mg total) by mouth 3 (three) times a day as needed for cough. 4 active tirzepatide (Mounjaro) 7.5 MG/0.5ML Inject 0.5 mL (7.5 mg total) under the skin every 7 days. 4 active Mounjaro 5 mg/0.5 mL subcutaneous pen injector Inject 0.5 mL (5 mg total) under the skin every 7 days. 4 01/18/20 24 completed Ingrezza 40 MG tablet 4 active trospium ER (SANTURA XR) 60 MG CP24 Take 1 caplet by mouth daily. 4 active trospium ER (SANTURA XR) 60 MG CP24 Take 1 caplet by mouth daily. 4 active fenofibrate micronized 160 mg tablet TAKE 1 TABLET BY MOUTH DAILY 4 active fenofibrate (TRIGLIDE) 160 MG tablet TAKE 1 TABLET BY MOUTH DAILY 3 08/08/19 24 active fenofibrate (LOFIBRA) 160 mg tablet TAKE 1 TABLET BY MOUTH DAILY 3 active tirzepatide (Mounjaro) 2.5 MG/0.5ML Inject 0.5 mL (2.5 mg total) under the skin every 7 days. 3 03/09/20 23 active clindamycin 1 % topical gel Apply topically 2 (two) times a day. 3 active clindamycin (CLINDAGEL) 1 % gel Apply topically 2 (two) times a day. 3 active clindamycin (CLINDAGEL) 1 % gel Apply topically 2 (two) times a day. 3 active montelukast 10 mg tablet Take 1 tablet (10 mg total) by mouth every night at bedtime. 3 active mirabegron ER 25 mg tablet,extended release 24 hr Take 1 tablet (25 mg total) by mouth daily. 3 09/08/19 24 completed Mirabegron ER (MYRBETRIQ) 25 MG TB24 24 hr tablet Take 1 tablet (25 mg total) by mouth daily. 3 active estradiol 0.01% (0.1 mg/gram) vaginal cream Place 1 g vaginally 3 (three) times a week. Apply pea-sized amount to vaginal opening do not use applicator 3 active estradiol (ESTRACE) 0.1 MG/GM vaginal cream Place 1 g vaginally 3 (three) times a week. Apply pea-sized amount to vaginal opening do not use applicator 3 active nitrofurantoin macrocrystal 100 mg capsule TAKE 1 CAPSULE BY MOUTH DAILY 3 03/03/20 23 completed gabapentin 100 mg capsule TAKE 1 CAPSULE BY MOUTH TWICE DAILY NEEDED FOR UP TO 30 DAYS 2 07/24/19 23 completed benzonatate (TESSALON) 100 MG capsule Take 1 capsule (100 mg total) by mouth. 2 11/01/19 24 active albuterol sulfate 2.5 mg/3 mL (0.083 %) solution for nebulization Take 3 mL (2.5 mg total) by nebulization every 6 (six) hours as needed for wheezing. 2 active albuterol 2.5 mg /3 mL (0.083 %) nebulizer solution Take 3 mL (2.5 mg total) by nebulization every 6 (six) hours as needed for wheezing. 2 active famotidine (PEPCID) 40 MG tablet Take 1 tablet by mouth twice daily 2 11/01/19 24 aborted pantoprazole (PROTONIX) 40 mg EC tablet 2 (two) times a day. 2 active gabapentin (NEURONTIN) 100 mg capsule 2 (two) times a day. 2 active gabapentin (NEURONTIN) 100 MG capsule Take 100 mg by mouth 2 (two) times a day. 2 11/01/19 24 active codeine 10 mg-guaifenesin 100 mg/5 mL Syrup Take 10 mL by mouth every 6 (six) hours as needed for cough or congestion. 2 11/10/19 22 completed famotidine 20 mg tablet Take 1 tablet (20 mg total) by mouth every evening. 2 active acetaminophen 300 mg-codeine 30 mg tablet Take 1 tablet by mouth 3 (three) times a day as needed (cough). 2 11/10/19 22 completed albuterol sulfate HFA 90 mcg/actuation aerosol inhaler Inhale 2 puffs into the lungs every 6 (six) hours as needed for wheezing. 2 active metFORMIN (GLUCOPHAGE-XR) 500 MG 24 hr tablet Take 500 mg by mouth every morning with breakfast. 2 12/24/19 22 active fenofibrate (TRIGLIDE) 160 mg tablet 2 active nitrofurantoin (MACRODANTIN) 100 mg capsule 2 active simvastatin 20 mg tablet Take 1 tablet (20 mg total) by mouth every night at bedtime. 2 11/27/19 22 completed omeprazole 40 mg capsule,delayed release Take 1 capsule (40 mg total) by mouth 2 (two) times a day. 2 11/10/19 22 completed buPROPion (WELLBUTRIN XL) 150 MG 24 hr tablet Take 1 tablet (150 mg total) by mouth daily. 2 active buPROPion (WELLBUTRIN XL) 150 MG 24 hr tablet Take 1 tablet (150 mg total) by mouth daily. 2 active lamoTRIgine (LaMICtal) 100 mg tablet 3 (three) times a day. 1 po qam 2po qhs 2 active lamoTRIgine (LaMICtal) 100 MG tablet 3 (three) times a day. 1 po qam 2po qhs 2 active buPROPion (WELLBUTRIN XL) 300 MG 24 hr tablet Take 1 tablet (300 mg total) by mouth daily. 9 active buPROPion XL (WELLBUTRIN XL) 300 mg 24 hr tablet Take 300 mg by mouth. 9 active sucralfate (CARAFATE) 1 GM/10ML suspension Take 1 g by mouth 4 (four) times a day before meals and nightly. On an empty stomach. 11/01/19 24 active albuterol sulfate 2.5 mg/3 mL (0.083 %) solution for nebulization INHALE CONTENTS OF 1 VIAL VIA NEBULIZER EVERY 6 HOURS NEEDED FOR WHEEZING 09/10/19 23 completed albuterol sulfate HFA 90 mcg/actuation aerosol inhaler INHALE 2 PUFFS INTO THE LUNGS EVERY 6 HOURS NEEDED FOR WHEEZE 09/10/19 23 completed codeine 10 mg-guaifenesin 100 mg/5 mL oral liquid TAKE 10 ML BY MOUTH EVERY 6 (SIX) HOURS NEEDED FOR COUGH OR CONGESTION. 09/10/19 23 completed Bactrim DS 800 mg-160 mg tablet active benzonatate 100 mg capsule TAKE 1 CAPSULE BY MOUTH THREE TIMES A DAY NEEDED FOR COUGH active bupropion HCl XL 150 mg 24 hr tablet, extended release Take 1 tablet (150 mg total) by mouth daily. active bupropion HCl XL 300 mg 24 hr tablet, extended release active bupropion HCl XL 300 mg 24 hr tablet, extended release Take 1 tablet (300 mg total) by mouth daily. active carbamazepine 200 mg tablet 6 (six) times a day. Odd days takes 5 tabs and even days to take 6 tablets active cefpodoxime 200 mg tablet Take 1 tablet (200 mg total) by mouth 2 (two) times a day. active fenofibrate 160 mg tablet active fluorouracil 5 % topical cream APPLY TOPICALLY TWICE A DAY TO FACE FOR 2 WEEKS, THEN STOP. EXPECT REDNESS AND CRUSTING. active Ingrezza 40 mg capsule active lamotrigine 100 mg tablet 3 (three) times a day. 1 po qam 2po qhs active metformin ER 500 mg tablet,extended release 24 hr TAKE 1 TABLET BY MOUTH TWICE A DAY active metformin ER 500 mg tablet,extended release 24 hr Take 1 tablet (500 mg total) by mouth every morning with breakfast. active metronidazole 0.75 % topical gel APPLY THIN LAYER TO FACE 1 TO 2 TIMES PER DAY. MAY APPLY MOISTURIZER OVER IT. active montelukast 10 mg tablet TAKE 1 TABLET BY MOUTH EVERY DAY AT BEDTIME active Mounjaro 7.5 mg/0.5 mL subcutaneous pen injector INJECT 1 SYRINGE SUBCUTANEOUSLY ONCE A WEEK active nitrofurantoin monohydrate/macrocrys tals 100 mg capsule TAKE 1 CAPSULE BY MOUTH TWICE A DAY active omeprazole 40 mg capsule,delayed release active oxycodone 5 mg tablet ac tive pantoprazole 40 mg tablet,delayed release Take 1 tablet (40 mg total) by mouth 2 (two) times a day before breakfast and dinner. active prednisone 20 mg tablet TAKE 1 TABLET BY MOUTH 2 TIMES A DAY FOR 3 DAYS. active prednisone 20 mg tablet TAKE 2 TABLETS BY MOUTH EVERY DAY WITH FOOD active simvastatin 20 mg tablet active simvastatin 40 mg tablet active simvastatin 40 mg tablet TAKE 1 TABLET BY MOUTH IN THE EVENING active sulfamethoxazole 800 mg-trimethoprim 160 mg tablet TAKE 1 TABLET BY MOUTH EVERY 12 HOURS FOR 7 DAYS active trospium ER 60 mg capsule,extended release 24 hr TAKE 1 CAPSULE BY MOUTH ONCE DAILY active albuterol (PROVENTIL) (0.083%) 2.5 mg/3 mL nebulizer solution albuterol sulfate 2.5 mg/3 mL (0.083 %) solution for nebulization 3 ml nebulizer once active aspirin enteric coated (ECOTRIN LOW STRENGTH) 81 MG EC tablet Take 81 mg by mouth daily. active cefpodoxime (VANTIN) 200 MG tablet Take 1 tablet (200 mg total) by mouth 2 (two) times a day. active ipratropium-albuterol (DUONEB) 0.5-2.5 mg/3 mL nebulizer solution ipratropium 0.5 mg-albuterol 3 mg (2.5 mg base)/3 mL nebulization soln 3 ml nebulizer once active ipratropium-albuteroL (DUONEB) 0.5-2.5 mg/3 mL nebulizer solution ipratropium 0.5 mg-albuterol 3 mg (2.5 mg base)/3 mL nebulization soln 3 ml nebulizer once active lamoTRIgine ER 300 MG Tablet SR 24 hr lamotrigine active trospium (SANCTURA XR) 60 MG extended release capsule Take 60 mg by mouth. active Allergies Allergen Reaction Severity Comment Documented Date Source Status IPRATROPIUM 10/12/2021 [facility] active FLUTICASONE-UMECL IDIN-VILANT OTHER (SEE COMMENTS) 08/31/2021 [facility] active FLUTICASONE-UMECL IDIN-VILANTER ANAPHYLAXISOTHER (SEE COMMENTS) Trelegy inhaler-th roat closing 08/31/2021 [facility] active CLARITHROMYCIN OTHER (SEE COMMENTS)SEIZURESOT HER Unknown 06/08/2019 [facility] active TRELEGY ELLIPTA ENS_AONECT Problems Problem Status Onset Date Problem Type Date of Resolution Source Bipolar affective disorder in remission active 6 ProblemAct [facility] Gastroesophageal reflux disease without esophagitis active 6 ProblemAct [facility] Morbid obesity active 6 ProblemAct [facility] Type 2 diabetes mellitus without complication, without long-term current use of insulin ([facility] V24, [facility] V28) active EncounterDiagnosisAct C T_THSFRAN Heart murmur active 6 ProblemAct [facility] Chronic UTI active 6 ProblemAct [facility] Mixed hyperlipidemia active 6 ProblemAct [facility] Alkaline phosphatase elevation active 2021-08-26 5 ProblemAct [facility] Anemia active 2021-08-26 5 ProblemAct [facility] Seasonal allergies active 2022-06-27 8 ProblemAct [facility] Colon cancer screening active 5 ProblemAct [facility] Constipation active 5 ProblemAct [facility] Cough in adult patient active 5 ProblemAct [facility] Gastroesophageal reflux disease with esophagitis active 5 ProblemAct [facility] Gastroesophageal reflux disease, unspecified whether esophagitis present active EncounterDiagnosisAct [facility] Acute upper respiratory infection active EncounterDiagnosisAct [facility] Type 2 diabetes mellitus without complication, without long-term current use of insulin active 9 ProblemAct [facility] Other specified disorders of breast active EncounterDiagnosisAct [facility] Other penitentiary (current) drug therapy active EncounterDiagnosisAct [facility] Chronic urinary tract infection active 6 ProblemAct ENS_[facility] Alkaline phosphatase above reference range active 2021-08-26 5 ProblemAct [facility] Gastroesophageal reflux disease without esophagitis active 6 ProblemAct [facility] Seasonal allergy active 2022-06-27 8 ProblemAct [facility] Anemia active 2021-08-26 5 ProblemAct [facility] Mixed hyperlipidemia active 6 ProblemAct [facility] Bipolar disorder in remission active 6 ProblemAct [facility] Type 2 diabetes mellitus without complication active 9 ProblemAct [facility] Heart murmur active 6 ProblemAct [facility] Urge incontinence of urine active 2024-03-29 6 ProblemAct [facility] Dysuria active 2024-04-29 1 ProblemAct [facility] Morbid obesity active 6 ProblemAct [facility] Recurrent urinary tract infection active 9 ProblemAct [facility] Urgent desire to urinate active 2024-03-29 6 ProblemAct [facility] Plantar fasciitis of left foot active 2022-08-26 5 ProblemAct [facility] Hip pain active 2024-06-27 1 ProblemAct [facility] Pain of right lower leg active 2024-06-27 1 ProblemAct [facility] Muscle tension dysphonia active 2021-10-26 8 ProblemAct [facility] Asthma active 2021-10-26 8 ProblemAct [facility] Laryngopharyngeal reflux active 2021-10-26 8 ProblemAct [facility] Allergic rhinitis active 2021-10-26 8 ProblemAct [facility] Lesion of true vocal cord active 2021-10-26 8 [facility] Chronic cough active 2021-10-26 8 [facility] Immunizations Vaccine Date Source Lot Number Status SARS-COV-2 (COVID-19) vaccin e, mRNA, spike protein, LNP, bivalent booster, preservative free, 30 mcg/0.3 mL dose, sunshine-sucrose formulation 01/15/2022 [facility] [id number] complet ed Influenza Quadrivalent, 0.5m l, preservative free (Fluarix; FluLaval; Fluzone) ages 6mo and older (Afluria) 3yo and older 01/04/2022 [facility] [id number] completed Influenza Quadrivalent, 0.5m l, preservative free (Fluarix; FluLaval; Fluzone) ages 6mo and older (Afluria) 3yo and older 01/04/2022 [facility] [id number] completed Tdap Tetanus diptheria acell ular pertussis (Boostrix; Adacel) 7yo and older 01/04/2022 [facility] [id number] completed Tdap Tetanus diptheria acell ular pertussis (Boostrix; Adacel) 7yo and older 01/04/2022 [facility] [id number] completed Pfizer SARS-CoV-2 COVID-19, mRNA, LNP-S, preservative free 07/18/2021 [facility] completed Pfizer SARS-CoV-2 COVID-19, mRNA, LNP-S, preservative free 07/18/2021 [facility] completed Moderna SARS-CoV-2 COVID-19, mRNA, LNP-S, preservative free 01/24/2021 [facility] completed Moderna SARS-CoV-2 COVID-19, mRNA, LNP-S, preservative free 01/24/2021 [facility] completed Moderna SARS-CoV-2 COVID-19, mRNA, LNP-S, preservative free 06/19/2020 [facility] completed Moderna SARS-CoV-2 COVID-19, mRNA, LNP-S, preservative free 06/19/2020 [facility] completed Moderna SARS-CoV-2 COVID-19, mRNA, LNP-S, preservative free 05/22/2020 [facility] completed Moderna SARS-CoV-2 COVID-19, mRNA, LNP-S, preservative free 05/22/2020 [email or web address] completed Influenza trivalent, with pr eservative (Fluzone; Afluria) 6mo and older 01/26/2020 [facility]_NATESFRARASH UNK completed Influenza trivalent, with pr eservative (Fluzone; Afluria) 6mo and older 01/26/2020 [facility]_NATESFRARASH UNK completed Tdap Tetanus diptheria acell ular pertussis (Boostrix; Adacel) 7yo and older 02/23/2012 [facility]_NATESFRAN UNK completed Tdap Tetanus diptheria acell ular pertussis (Boostrix; Adacel) 7yo and older 02/23/2012 [facility]_NATESFRAN UNK completed Encounters Encounter Type Encounter Reason Primary Diagnosis Location Date Ambulatory [facility] 09/03/2024 Ambulatory [facility] 07/17/2024 Ambulatory [facility] 07/16/2024 Ambulatory [facility] 07/16/2024 Ambulatory [facility] 07/16/2024 Ambulatory [facility] 07/16/2024 Ambulatory Follow-up Type 2 diabetes mellitus without complications [facility] 06/11/2024 Ambulatory [facility] 05/16/2024 Ambulatory [facility] 05/15/2024 Ambulatory Pain, unspecified Pain, unspecified [facility] 05/08/2024 Ambulatory Pain, unspecified Pain, unspecified [facility] 05/08/2024 Ambulatory Urge incontinence Urge incontinence [facility] 05/08/2024 Ambulatory [facility] 04/23/2024 Ambulatory [facility] 04/20/2024 Ambulatory [facility] 04/18/2024 Ambulatory [facility] 04/18/2024 Ambulatory [facility] 04/17/2024 Ambulatory Follow-up Follow-up [facility] 02/17/2024 Ambulatory [facility] 02/16/2024 Ambulatory Encounter for genera l adult medical examination without abnormal findings Encounter for general adult medical examination without abnormal findings [facility] 01/18/2024 Ambulatory Other extermination supervisor (current) drug therapy Other extermination supervisor (current) drug therapy [facility] 01/09/2024 Ambulatory Type 2 diabetes mellitus without complications Type 2 diabetes mellitus without complications [facility] 01/09/2024 Ambulatory [facility] 01/07/2024 Ambulatory Cough Cough [facility] 01/07/2024 Ambulatory Other specified disorders of breast Other specified disorders of breast [facility] 01/03/2024 Ambulatory Other specified disorders of breast Other specified disorders of breast [facility] 01/03/2024 Ambulatory [facility] 11/08/2023 Ambulatory Follow-up Follow-up [facility] 11/01/2023 Ambulatory Other extermination supervisor (current) drug therapy Other penitentiary (current) drug therapy [facility] 10/04/2023 Ambulatory Encounter for screening mammogram for malignant neoplasm of breast Encounter for screening mammogram for malignant neoplasm of breast [facility] 08/08/2023 Ambulatory Type 2 diabetes mellitus without complications Type 2 diabetes mellitus without complications [facility] 08/02/2023 Ambulatory Other penitentiary (current) drug therapy Other penitentiary (current) drug therapy [facility] 04/18/2023 Ambulatory Type 2 diabetes mellitus without complications Type 2 diabetes mellitus without complications [facility] 04/18/2023 Ambulatory 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 [facility] 12/31/2022 Ambulatory Other penitentiary (current) drug therapy Other extermination supervisor (current) drug therapy [facility] 11/19/2022 Ambulatory [facility] 10/07/2022 Ambulatory [facility] 09/10/2022 Ambulatory [facility] 09/09/2022 Ambulatory [facility] 09/09/2022 Ambulatory [facility] 09/06/2022 Ambulatory [facility] 09/06/2022 Ambulatory [facility] 09/06/2022 Ambulatory Morbid (severe) obesity due to excess calories [facility] 06/01/2022 Ambulatory [facility] 03/16/2022 Ambulatory Dysphonia [facility] [employer] 02/12/2022 Ambulatory Gastro-esophagea l reflux disease with esophagitis, without bleeding [facility] 01/22/2022 Ambulatory Dysphonia [facility] [employer] 12/18/2021 Ambulatory Gastro-esophagea l reflux disease with esophagitis, without bleeding [facility] 12/14/2021 Ambulatory Cough, unspecified [facility] 12/02/2021 Ambulatory Allergic rhiniti s, unspecified [facility] 11/12/2021 Ambulatory Gastro-esophagea l reflux disease with esophagitis, without bleeding [employer] [facility] 10/30/2021 Care Team Organization Name Specialty Phone Email Start Date End Da cindy [facility], Erin Khan MD Primary Care 04/29/2024 12/02/2024 [facility] 02/06/2024 [facility] Primary Care 02/06/2024 [facility] Primary Care [facility] 02/03/2024 [facility] 11/08/2023 [facility] 08/04/2023 [facility] 11/21/2022 10/09/2024 [facility] Primary Care 11/19/2022 11/19/2022 [facility] ERIN KHAN Primary Care 01/26 [place] [facility] ERIN KHAN Primary Care 01/22/202205/26 [facility] Erin Khan Primary Care 10/2602/12/2022 [facility] Primary Care 11/12/2021 [facility] Erin Bill Primary Care 10/30/202111/26
--- OUTSIDE RECORDS SUMMARY | 2024-12-03 09:56 | XMS_ITS | Encounter Summary ---
Author Organization [facility] Address [address] [place] [address] Care Team Providers Care Sales Engineer Name Role Phone Mónica Diaz MD Primary Care Provider [phone] Erin Khan MD Primary Care Provider [phone] Encounter Details Date Type Department Care Team (Late st Contact Info) Description 06/15/2019 Scanned Document [facility] General Surgery [address] [phone] Gastroenterology, Scan Social History Tobacco Use Types [...] on filedocumented in this encounter Care Teams Sales Engineer Relationship Specialty Start Date End Date Mónica Diaz MD [address] [place] [address] PCP - General 05/30/19 10/28/21 Erin Khan MD [address] [place] [address] PCP - General Family Medicine 10/29/21 documented as of this encounter
--- OUTSIDE RECORDS SUMMARY | 2024-12-03 09:56 | XMS_ITS | Clinical Summary ---
Author Organization [facility] Address [address] [place] [address] Care Team Providers Care Apparatus Cleaner Name Role Phone Erin Khan MD Primary Care Provider [phone] Allergies Active Allergy Reactions Criticality Noted Date Comments Clarithromycin Other (See Comments) 06/08/2019 Unknown Medications fenofibrate (TRIGLIDE) 160 MG tablet fenofibrate Active lamoTRIgine ER 300 MG Tablet SR 24 hr lamotrigine Active simvastatin (ZOCOR) 20 MG tablet simvastatin Active albuterol (PROVENTIL) (0.083%) 2.5 mg/3 mL nebulizer solution albuterol sulfate 2.5 mg/3 mL (0.083 %) solution for nebulization 3 ml nebulizer once Active ipratropium-al buterol (DUONEB) 0.5-2.5 mg/3 mL nebulizer solution ipratropium 0.5 mg-albuterol 3 mg (2.5 mg base)/3 mL nebulization soln 3 ml nebulizer once Active metFORMIN (GLUCOPHAGE-XR ) 500 MG 24 hr tablet Take 500 mg by mouth every morning with breakfast. 022 Active Mounjaro 5 MG/0.5ML pen-injector INJECT 1 SYRINGE SUBCUTANEOUSLY ONCE A WEEK Active buPROPion (WELLBUTRIN XL) 300 MG 24 hr tablet Active buPROPion (WELLBUTRIN XL) 150 MG 24 hr tablet Active trospium (SANCTURA XR) 60 MG extended release capsule Take 60 mg by mouth. Active Ingrezza 40 MG tablet 024 Active carBAMazepine (TEGretol) 200 MG tablet 024 Active aspirin enteric coated (ECOTRIN LOW STRENGTH) 81 MG EC tablet Take 81 mg by mouth daily. Active Multiple Vitamins-Nickel Plater als (OCUVITE PO) Take by mouth. Activ e Multiple Vitamins-Nickel Plater als (ONE-A-DAY WOMENS 50 PLUS PO) Take by mouth. Activ e predniSONE (DELTASONE) 20 MG tabletIndicati ons:Acute cough,[place] is Take 2 tablets (40 mg total) by mouth daily. With food. 10 tablet 024 Active PANTOprazole (PROTONIX) 40 MG EC tabletIndicati ons:Gastroesop hageal reflux disease, unspecified whether esophagitis present TAKE 1 TABLET BY MOUTH TWICE DAILY BEFORE BREAKFAST AND DINNER 180 tablet 025 Active PANTOprazole (PROTONIX) 40 MG EC tabletIndicati ons:Gastroesop hageal reflux disease, unspecified whether esophagitis present Take 1 tablet (40 mg total) by mouth 2 (two) times a day before breakfast and dinner. 180 tablet 3 024 2024 Discontinued Active Problems Problem Noted Date Diagnosed Date Gastroesophageal reflux disease with esophagitis 10/30/2021 Assessment & Plan (12/02/2021 4:21 PM EDT): Recently switched from omeprazoleto pantoprazole 40mg BID with no change Also on pepcid to 40mg BID Diet and LSM re gerd - to start decaf, discussed diet EGD with perez on meds and endoflip Refer to surgeon Assessment & Plan (10/30/2021 12:32 PM EDT): Stop omeprazole Change to pantoprazole 40mg BID Increase pepcid to 40mg BID Diet and LSM re gerd - to start decaf, discussed diet Call with worsening sx OV in 4-6 weeks to evaluate further If no change, ?EGD with perez on meds +/- endoflip Discussed role of medication, diet, weight loss and when to refer to surgeon Obtain GI records [facility] Cough in adult patient 10/30/2021 Assessment & Plan (12/02/2021 8:58 AM EDT): Recent viral illness CXR unremarkable Tried cough suppressants, oral steroids, nebulizer treatments, cough syrup with codeine. Following with Pulmonology and referred to ENT Maximized PPI and H2 jason CT chest pending EGD with chris, surgeon referral Assessment & Plan (10/30/2021 12:25 PM EDT): Recent viral illness CXR unremarkable Tried cough suppressants, oral steroids, nebulizer treatments, cough syrup with codeine. Following with Pulmonology and referred to ENT Maximized PPI and H2 jason Colon cancer screening 10/30/2021 Assessment & Plan (11/27/2021 3:43 PM EDT): Colon 2018 at [facility], recall 10 yrs Assessment & Plan (10/30/2021 12:24 PM EDT): Colon 2018 at [facility], recall 10 yrs Constipation 10/30/2021 Assessment & Plan (11/27/2021 3:43 PM EDT): High fiber diet Miralax and colace as needed Can increase miralax as needed Assessment & Plan (10/30/2021 12:30 PM EDT): High fiber diet Miralax and colace as needed Can increase miralax as needed Encounters Date Type Department Care Team Description 11/15/2024 [address] [facility] [address] [phone] Tania Kelsey APRN Gastroesophageal reflux disease, unspecified whether esophagitis present from Last 3 Months Family History Medical History Relation Name Comments Dementia Father Thanh Diabetes Father Thanh Heart disease Father Thanh Hyperlipidemia Father Thanh Hyperlipidemia Mother Relation Name Status Comments Father Thanh Alive Mother Alive Social History Tobacco Use Types Packs/Day Years Used Date Smoking Tobacco: Never Smokeless Tobacco: Never Tobacco Cessation:Counseling Given: Not Answered Alcohol Use Standard Drinks/Week Comments Not Currently 0 (1 standard drink = 0.6 oz pur e alcohol) holidays Comments Unknown Sex and Gender Information Value Date Recorded Sex Assigned at Not on file Legal Sex Female 6:44 PM EST Gender Identity Not on file Sexual Orientation Not on file Last Filed Vital Signs Vital Sign Reading Time Taken Comments Blood Pressure 108/74 01/07/2024 10:56 AM EDT Pulse 93 01/07/2024 10:56 AM EDT Temperature 36 C (96.8 F) 01/07/2024 10:56 AM EDT Respiratory Rate 14 06/01/2022 8:23 AM EST Oxygen Saturation 97% 01/07/2024 10:56 AM EDT Inhaled Oxygen Concentration - - Weight 86.6 kg (191 lb) 11/01/2023 11:41 AM EDT Height 157.5 cm (5' 2 ) 11/01/2023 11:41 AM EDT Body Mass Index 34.93 11/01/2023 11:41 AM EDT Plan of Treatment Health Maintenance Due Date Last Done Comments Hepatitis C Virus Screening 1965 HIV Screening 06/13/1980 DTaP/Tdap/Td Vaccines (1 - Tdap) 06/13/1986 Hepatitis B Vaccines (1 of 3 - 19+ 3-dose series) 06/13/1986 Pap Smear (Ages 21-65) 06/13/1988 Mammogram 2007 Pneumococcal Vaccines 50+ (1 of 1 - PCV) 06/13/2017 Zoster (Shingles) Vaccine (1 of 2) 06/13/2017 Influenza Vaccine 10/26/2024 01/08/2023, , 01/26/2020, Additional history exists COVID-19 Vaccine (6 - 2024-2 6 season) 2024 01/15/2022, 07/18/2021, 01/24/2021, Additional history exists Colonoscopy 03/13/2028 03/13/2018 Procedures Procedure Name Priority Date/Time Associated Diagnosis Comments HX GASTROENTEROLOGY COLONOSCOPY-SCAN Routine 03/13/2018 from Last 3 Months or Most Recently Relevant to Health Maintenance Results * HX GASTROENTEROLOGY COLONOSCOPY-SCAN (03/13/2018) us Scan Gastroenterology HX AMB PROCEDURES Final Re sult from Last 3 Months or Most Recently Relevant to Health Maintenance Insurance [address] [place] [address] UMR R UMR Care Teams Apparatus Cleaner Relationship Specialty Start Date End Date Erin Khan MD PCP - General Family Medicine 10/29/21
== END 2024-12-03 08:56 | disposition home or self-care (01) ==
LOC: HO.HMGAL 08:53
PROVIDERS: Visit Provider Registered Nurse Emergency
DX: J30.89 Other allergic rhinitis (principal)
CPT/HCPCS: 95117; 95165

== ENCOUNTER 2025-02-04 10:33 | Outpatient (AMB) | payer OTHER, SELFPAY ==
--- OUTSIDE RECORDS SUMMARY | 2024-01-02 10:12 | XMS_ITS | Encounter Summary ---
Author Organization [facility] Address [address] [place] [address] Care Team Providers Care Patient Observation Assistant Name Role Phone Erin Khan MD Primary Care Provider [phone] Encounter Details Date Type Department Care Team (Late st Contact Info) Description 01/02/2024 11:12 AM EDT Hospital Encounter TH HISTORIC ENCOUNTERS EASTERN CONVERSION ONLY Maria De Jesus Bingham MD [address] [phone] Social History Tobacco Use Types Packs/Day Years Used Date Smoking Tobacco: Former Cigarettes Smokeless Tobacco: Never Alcohol Use Standard Drinks/Week Comments Yes 0 (1 standard drink = 0.6 oz pur e alcohol) occasional Housing Instability Answer Date Recorde d Are you worried that in the next 2 months you may not have stable housing? No 01/21/2025 Food Access & Nutrition Answer Date Rec orded Do you have access to a vari ety of food including fruits and vegetables? Yes 01/21/2025 Access to Healthcare Answer Date Record ed Within the last 3 months, ho w many times did you visit the emergency department for your medical care? 0 01/21/2025 Health Literacy Answer Date Recorded How often do you need to hav e someone help you when you read instructions, pamphlets, or other written material from your doctor or pharmacy? Never 01/21/2025 Caregiver: How often do you need to have someone help you when you read instructions, pamphlets, or other written material from your doctor or pharmacy? Not on file 01/21/2025 Financial Risk Answer Date Recorded How hard is it for you to pa y for the very basics like food, housing, medical care, and air conditioning / heating? Not very hard 01/21/2025 Transportation Answer Date Recorded Has the lack of transportati on kept you from meetings, work, or from getting things needed for daily living? No Has the lack of transportati on kept you from medical appointments or from getting medications? No 01/21/2025 Social Isolation Answer Date Recorded How often do you feel lonely or isolated from th ose around you? Never 01/21/2025 Food Risk Answer Date Recorded Within the past 12 months we worried whether our food would run out before we got money to buy more. Never true 01/21/2025 Within the past 12 months th e food we bought just didn't last and we didn't have money to get more. Never true 01/21/2025 Dependent Care Answer Date Recorded Do you need help finding or paying for care for your loved ones. For example, child development assistant or elderly care for an older adult? No 01/21/2025 Education Answer Date Recorded Do you think completing more education or training, like finishing a GED, going to college, or learning a trade, would be helpful for you? N/A 01/21/2025 Employment and Income Answer Date Recor ded During the last four weeks, have you been actively looking for work? No 01/21/2025 Living Situation Answer Date Recorded What is your living situation? Unrecognized valu e 01/21/2025 Comments No Sex and Gender Information Value Date Recorded Sex Assigned at Female 05/03/2024 9:48 AM EST Legal Sex Female 4:26 AM EST Gender Identity Female 05/03/2024 9:48 AM EST Sexual Orientation Choose not to disclose 2024 9:48 AM EST documented as of this encounter Last Filed Vital Signs Vital Sign Reading Time Taken Comments Blood Pressure - - Pulse - - Temperature - - Respiratory Rate - - Oxygen Saturation - - Inhaled Oxygen Concentration - - Weight 93 kg (205 lb) 08/04/2023 10:44 AM EDT Height 157.5 cm (5' 2 ) 08/04/2023 10:44 AM EDT Body Mass Index 37.49 08/04/2023 10:44 AM EDT documented in this encounter Plan of Treatment Upcoming Encounters Date Type Department Care Team (Late st Contact Info) Description 07/22/2025 9:00 AM EDT Office Visit Internal Medicine - [facility] [address] [place] [address] Erin Khan MD [address] [place] [address] documented as of this encounter Visit Diagnoses Not on filedocumented in this encounter Care Teams Patient Observation Assistant Relationship Specialty Start Date End Date Erin Khan MD [address] [place] [address] PCP - General 10/04/21 documented as of this encounter
--- OUTSIDE RECORDS SUMMARY | 2025-02-01 10:31 | XMS_ITS | Encounter Summary ---
Author Organization [facility] Address [address] [place] [address] Care Team Providers Care Cheese Pancake Roller Name Role Phone Erin Khan MD Primary Care Provider [phone] Reason for Visit * Imaging (Routine) - Authorized Specialty Diagnoses / Procedures Referred By Contac t Referred To Contact Radiology Diagnoses Breast cancer screening by mammogram Procedures MG Mammo Digital Screening w Dat bilat MG Mammo Digital Screening bilat Erin Khan MD [address] [place] [address] Phone: tel: fax: [facility] Referral ID Status Reason Start Date Expiration Date V isits Requested Visits Authorized [id number] Authorized 01/21/2025 01/21/2026 1 1 Encounter Details Date Type Department Care Team (Latest Contact Info) Description 02/01/2025 10:31 AM EST - 02/01/2025 11:59 PM [facility] Hospital Encounter [facility] [address] [phone] Breast cancer screening by mammogram Discharge Disposition: Home or Self Care Social History Tobacco Use Types Packs/Day Years [...] care for your loved ones. For example, childcare provider or elderly care for an older adult? [...] - Inhaled Oxygen Concentration - - Weight - - Height 157.5 cm (5' 2 ) 02/01/2025 10:46 AM EST Body Mass Index - - documented in this encounter Medications at Time of Discharge albuterol 2.5 mg /3 mL (0.083 %) nebulizer solution Take 3 mL (2.5 mg total) by nebulization every 6 (six) hours as needed for wheezing. 11/09/2021 albuterol HFA (PROAIR HFA ; PROVENTIL HFA ; VENTOLIN HFA) 90 mcg/actuation inhaler Inhale 2 puffs into the lungs every 6 (six) hours as needed for wheezing. 10/04/2021 aspirin 81 mg EC tablet Take 1 tablet (81 mg total) by mouth 1 (one) time each day. buPROPion XL (WELLBUTRIN XL) 150 mg 24 hr tablet Take 1 tablet (150 mg total) by mouth daily. 06/15/2021 buPROPion XL (WELLBUTRIN XL) 300 mg 24 hr tablet Take 1 tablet (300 mg total) by mouth daily. 07/25/2018 carBAMazepine (TEGretol) 200 mg tablet 6 (six) times a day. Odd days takes 5 tabs and even days to take 6 tablets 07/25/2018 clindamycin (CLEOCIN T) 1 % gel Apply topically 2 (two) times a day. 01/13/2023 fenofibrate (LOFIBRA) 160 mg tablet TAKE 1 TABLET BY MOUTH DAILY 90 tablet 1 08/14/2024 Ingrezza 40 mg capsule 1 (one) time each day. 10/27/2023 ipratropium-albu teroL (DUONEB) 0.5-2.5 mg/3 mL nebulizer solution ipratropium 0.5 mg-albuterol 3 mg (2.5 mg base)/3 mL nebulization soln 3 ml nebulizer once lamoTRIgine (LaMICtal) 100 mg tablet 3 (three) times a day. 1 po qam 2po qhs 06/15/2021 metroNIDAZOLE (METROGEL) 0.75 % gel APPLY THIN LAYER TO FACE 1 TO 2 TIMES PER DAY. MAY APPLY MOISTURIZER OVER IT. 07/29/2024 montelukast (SINGULAIR) 10 mg tablet Take 1 tablet (10 mg total) by mouth every night at bedtime. 09/30/2022 multivit with calcium,iron,min (MULTIPLE VITAMIN, WOMENS ORAL) Take by mouth. pantoprazole (PROTONIX) 20 mg EC tablet Take 1 tablet (20 mg total) by mouth 1 (one) time each day before breakfast. Do not crush, chew, or split. simvastatin (ZOCOR) 40 mg tablet TAKE 1 TABLET BY MOUTH IN THE EVENING 90 tablet 1 08/14/2024 tirzepatide (Mounjaro) 7.5 mg/0.5 mL injectionIndicat ions:Type 2 diabetes mellitus without complication, without long-term current use of insulin (CMS/HCC V24, CMS/HCC V28) Inject 0.5 mL (7.5 mg total) under the skin 1 (one) time per week. 6 mL 1 11/21/2024 documented as of this encounter Discharge Disposition Disposition Code Departure Means Destination Home or Self Care documented in this encounter Plan of Treatment Upcoming Encounters Date Type Department Care Team (Late st Contact Info) Description 07/22/2025 9:00 AM EDT Office Visit Internal Medicine - [place] [address] [place] [address] Erin Khan MD [address] [place] [address] documented as of this encounter Procedures Procedure Name Priority Date/Time Associated Diagnosis Comments MG MAMMO DIGITAL SCREENING W DAT BILAT Routine 02/01/2025 10:56 AM EST Breast cancer screening by mammogram documented in this encounter Results * MG Mammo Digital Screening w Dat bilat (02/01/2025 10:56 AM EST) Anatomical Region Laterality Modality Breast Bilateral Mammography 02/01/2025 2:21 PM EST Impressions 02/01/2025 2:22 PM EST No evidence of breast malignancy. BI-RADS CATEGORY: 1 - NEGATIVE RECOMMENDATION: Screening bilateral mammogram is recommended in 1 year. Mammo Location: [facility], [address] [place] [address], [address], . -------- FINAL REPORT -------- Dictated By: Shyann Meclhor Dictated Date: 02/01/2025 14:21 ET Assigned Physician: Shyann Melchor Reviewed and Electronically Signed By: Shyann Melchor Signed Date: 02/01/2025 14:22 ET Workstation ID: [id number] Transcribed By: Self Edit Transcribed Date: 02/01/2025 14:21 ET Narrative 02/01/2025 2:22 PM EST CLINICAL: 59 years old, Female, routine annual exam. COMPARISON: 08/08/2023 TECHNIQUE: Bilateral MLO and CC views were obtained digitally with 3-D mammogram (digital breast tomosynthesis). Computer-aided detection was utilized in evaluation of this exam (CAD). FINDINGS: There is no evidence of suspicious mass or architectural distortion. No worrisome calcifications are evident. There has been no significant change from prior exam(s). BREAST DENSITY: B - There are scattered areas of fibroglandular density. Procedure Note Shyann Melchor MD - 02/01/2025 CLINICAL: 59 years old, Female, routine annual exam. COMPARISON: 08/08/2023 TECHNIQUE: Bilateral MLO and CC views were obtained digitally with 3-Dmammogram (digital breast tomosynthesis). Computer-aided detection wasutilized in evaluation of this exam (CAD). FINDINGS: There is no evidence of suspicious mass or architectural distortion. Noworrisome calcifications are evident. There has been no significantchange from prior exam(s). BREAST DENSITY: B - There are scattered areas of fibroglandular density. IMPRESSION: No evidence of breast malignancy. BI-RADS CATEGORY: 1 - NEGATIVE RECOMMENDATION: Screening bilateral mammogram is recommended in 1 year. Mammo Location: [facility], [address] [place] [address], [id number], . -------- FINAL REPORT -------- Dictated By: Shyann Melchor Dictated Date: 02/01/2025 14:21 ET Assigned Physician: Shyann Melchor Reviewed and Electronically Signed By: Shyann Melchor Signed Date: 02/01/2025 14:22 ET Workstation ID: [id number] Transcribed By: Self Edit Transcribed Date: 02/01/2025 14:21 ET us Erin Khan MD IMG BI PROCEDURES Final Res ult documented in this encounter Visit Diagnoses Diagnosis Breast cancer screening by mammogram documented in this encounter Additional Health Concerns Assessment Noted Time PHQ-9 Depression Total Score: 0 01/22/20 25 9:17 AM EDT documented as of this encounter Care Teams Cheese Pancake Roller Relationship Specialty Start Date End Date Erin Khan MD [address] [address] PCP - General 10/04/21 documented as of this encounter
--- OUTSIDE RECORDS SUMMARY | 2025-02-04 12:22 | XMS_ITS | Encounter Summary ---
Author Organization [facility] Address [address] [place] [address] Care Team Providers Care Director Of Religious Life Name Role Phone Mónica Diaz MD Primary Care Provider [phone] Erin Khan MD Primary Care Provider [phone] Encounter Details Date Type Department Care Team (Late st Contact Info) Description 04/09/2019 Scanned Document [facility] General Surgery [address] [phone] Gastroenterology, Scan Social History Tobacco Use Types [...] on filedocumented in this encounter Care Teams Director Of Religious Life Relationship Specialty Start Date End Date Mónica Diaz MD [address] [place] [address] PCP - General 05/30/19 10/28/21 Erin Khan MD [address] [place] [address] PCP - General Family Medicine 10/29/21 documented as of this encounter
--- OUTSIDE RECORDS SUMMARY | 2025-02-04 12:22 | XMS_ITS | Clinical Summary ---
Author Organization [facility] [address] [facility] Address [address] [place] [address] Phone Care Team Providers Care Environmental Science Program Director Name Role Phone Erin Khan MD Primary Care Provider [phone] Allergies Active Allergy Reactions Criticality Noted Date Comments Clarithromycin Seizures High 06/08/2019 biaxin -SPECIFIC BRAND REACTION Scjhadovyub-Hnzvhdcfd-Fzxntl er Anaphylaxis High 08/31/2021 Trelegy inhaler -throat closing Ipratropium 10/12/2021 Medications albuterol 2.5 mg /3 mL (0.083 %) nebulizer solution Take 3 mL (2.5 mg total) by nebulization every 6 (six) hours as needed for wheezing. 11/10/19 22 Active albuterol HFA (PROAIR HFA ; PROVENTIL HFA ; VENTOLIN HFA) 90 mcg/actuation inhaler Inhale 2 puffs into the lungs every 6 (six) hours as needed for wheezing. 10/05/19 22 Active buPROPion XL (WELLBUTRIN XL) 150 mg 24 hr tablet Take 1 tablet (150 mg total) by mouth daily. 06/16/19 22 Active buPROPion XL (WELLBUTRIN XL) 300 mg 24 hr tablet Take 1 tablet (300 mg total) by mouth daily. 07/26/19 19 Active carBAMazepine (TEGretol) 200 mg tablet 6 (six) times a day. Odd days takes 5 tabs and even days to take 6 tablets 07/26/19 19 Active clindamycin (CLEOCIN T) 1 % gel Apply topically 2 (two) times a day. 01/14/20 23 Active lamoTRIgine (LaMICtal) 100 mg tablet 3 (three) times a day. 1 po qam 2po qhs 06/16/19 22 Active montelukast (SINGULAIR) 10 mg tablet Take 1 tablet (10 mg total) by mouth every night at bedtime. 10/01/19 23 Active multivit with calcium,iron,m in (MULTIPLE VITAMIN, WOMENS ORAL) Take by mouth. Ac tive ipratropium-al buteroL (DUONEB) 0.5-2.5 mg/3 mL nebulizer solution ipratropium 0.5 mg-albuterol 3 mg (2.5 mg base)/3 mL nebulization soln 3 ml nebulizer once Active Ingrezza 40 mg capsule 1 (one) time each day. 10/27/19 24 Active aspirin 81 mg EC tablet Take 1 tablet (81 mg total) by mouth 1 (one) time each day. Active simvastatin (ZOCOR) 40 mg tablet TAKE 1 TABLET BY MOUTH IN THE EVENING 90 tablet 1 08/15/19 25 Active fenofibrate (LOFIBRA) 160 mg tablet TAKE 1 TABLET BY MOUTH DAILY 90 tablet 1 08/15/19 25 Active tirzepatide (Mounjaro) 7.5 mg/0.5 mL injectionIndic ations:Type 2 diabetes mellitus without complication, without long-term current use of insulin ([facility] V24, [facility] V28) Inject 0.5 mL (7.5 mg total) under the skin 1 (one) time per week. 6 mL 1 11/22/19 25 Active metroNIDAZOLE (METROGEL) 0.75 % gel APPLY THIN LAYER TO FACE 1 TO 2 TIMES PER DAY. MAY APPLY MOISTURIZER OVER IT. 07/30/19 25 Active pantoprazole (PROTONIX) 20 mg EC tablet Take 1 tablet (20 mg total) by mouth 1 (one) time each day before breakfast. Do not crush, chew, or split. Active metFORMIN XR (GLUCOPHAGE-XR ) 500 mg 24 hr tablet 1 (one) time each day. 02/12/20 23 025 Discontinued pantoprazole (PROTONIX) 40 mg EC tablet Take 1 tablet (40 mg total) by mouth 2 (two) times a day before breakfast and dinner. 11/03/19 22 025 Discontinued Active Problems Problem Noted Date Diagnosed Date Type 2 diabetes mellitus wit hout complication, without long-term current use of insulin ([facility] V24, [facility] V28) 02/17/2024 Assessment & Plan (02/17/2024 1:50 [...] Anemia 09/09/2021 Bipolar affective disorder in remission ([facility] V24) 08/31/2021 Chronic UTI 08/31/2021 Gastroesophageal reflux disease without esophagi tis 08/31/2021 Heart murmur 08/31/2021 Mixed hyperlipidemia 08/31/2021 Morbid obesity ([facility] V24, [facility] V28) 2021 Resolved Problems Problem Noted Date Diagnosed Date Resolved Date Prediabetes 09/09/2021 06/11/2024 Encounters Date Type Department Care Team Description 02/01/2025 10:31 AM EST - 02/01/2025 11:59 PM EST Hospital [facility] at [address] [phone] Breast cancer screening by mammogram Discharge Disposition: Home or Self Care 01/21/2025 9:30 AM EDT Office Visit [facility] - [facility] [address] [place] [phone] Erin Khan MD Encounter for routine adult health examination without abnormal findings (Primary Dx); Breast cancer screening by mammogram; Class 2 severe obesity due to excess calories with serious comorbidity and body mass index (BMI) of 37.0 to 37.9 in adult 11/21/2024 Telephone Internal [facility] - [facility] [address] [place] [phone] Renu Sharpe MA 11/21/2024 Telephone Internal [facility] - [facility] [address] [place] [address] Reun Sharpe MA from Last 3 Months Immunizations Immunization Administration Dates Next Due Influenza Quadrivalent, 0.5m l, preservative free (Fluarix; FluLaval; Fluzone) ages 6mo and older (Afluria) 3yo and older 01/04/2022 Influenza trivalent, 0.5mL, preservative free (Fluarix; FluLaval; Fluzone) ages 6mo and older (Afluria) 3 years and older 02/04/2024 Influenza trivalent, with pr eservative (Fluzone; Afluria) 6mo and older 01/26/2020 Moderna SARS-CoV-2 COVID-19, mRNA, LNP-S, preservative free 01/24/2021,06/19/2020,05/22/2020 Pfizer SARS-CoV-2 COVID-19, mRNA, LNP-S, preservative free 07/18/2021 Tdap Tetanus diptheria acell ular pertussis (Boostrix; Adacel) 7yo and older 01/04/2022,02/23/2012 Surgical History Surgery Date Site/Laterality Comments HYSTERECTOMY PROCEDURE:HYSTERECTOMY CHOLECYSTECTOMY PROCEDURE:CHOLECYSTECTOMY TONSILLECTOMY PROCEDURE:TONSILLECTOMY Medical History Medical History Date Comments Psychiatric disorder DX:Psychiat alanna disorder Cancer ([facility] V24, [facility] V28) DX:Cancer ([facility]);COMMENT:Uterine CA s/p compelte hysterectomy 1996 Asthma DX:Asthma GERD (gastroesophageal reflux disease) DX:GERD (gastroesophageal reflux disease) Obesity DX:Obesity Bipolar disorder ([facility] V2 4, [facility] V28) DX:Bipolar disorder ([facility]);COMMENT:Psychiatrist: Dr. Pierce, every Q3 months Hyperlipidemia DX:Hyperlipidemi a PONV (postoperative nausea a nd vomiting) Diabetes mellitus ([facility] V 24, [facility] V28) Prediabetes 09/09/2021 Family History Medical History [...] for your loved ones. For example, child and family therapist or elderly care for an older adult? [...] disclose 2024 9:48 AM EST Obstetrics History Para Term AB IAB SAB Ectopic Multiple Livin g Live Births 2 Last Filed Vital Signs Vital Sign Reading Time Taken Comments Blood Pressure 112/68 01/21/2025 9:12 AM EDT Pulse 78 01/21/2025 9:12 AM EDT Temperature 36.2 C (97.2 F) 01/21/2025 9:12 AM EDT Respiratory Rate 16 05/08/2024 2:43 PM EST Oxygen Saturation 98% 01/21/2025 9:12 AM EDT Inhaled Oxygen Concentration - - Weight 93 kg (205 lb) 01/21/2025 9:12 AM EDT Height 157.5 cm (5' 2 ) 02/01/2025 10:46 AM EST Body Mass Index 37.49 01/21/2025 9:12 AM EDT Plan of Treatment Upcoming Encounters Date Type Department Care Team (Late st Contact Info) Description 07/22/2025 9:00 AM EDT Office Visit Internal Medicine - [facility] [address] [place] [phone] Erin Khan MD [address] [place] [address] Health Maintenance Due Date Last Done Comments Colorectal Cancer Screening: Colonoscopy 1967 Diabetes: Annual Retina Eye Exam 06/13/1977 Hepatitis B Vaccines (1 of 3 - 19+ 3-dose series) 06/13/1986 Cervical Cancer Screening: Pap Smear 06/13/1988 HIV Screening 03/05/2022 COVID-19 Vaccine (8 - Moderna risk season) 2024 02/04/2024, 01/08/2023, 01/15/2022, Additional history exists Diabetes: Annual Urine Albumin-Creatinine Ratio (uACR) 06/11/2025 06/11/2024 Diabetes: Blood Sugar Control Test (HGBA1C) 07/11/2025 01/10/2025, 11/23/2024, 06/11/2024, Additional history exists Breast Cancer Screening 08/07/2025 02/02/20, 08/08/2023, 08/08/2023 Diabetes: Annual GFR (Glomerular Filtration Rate) 01/10/2026 01/10/2025, 10/22/2024, 01/09/2024, Additional history exists Diabetes: Annual Foot Exam 01/21/2026 01/21/2025 Social Influencers of Health Screening 01/21/2026 01/21/2025 Cholesterol Screening (Lipid Panel) 01/10/2030 01/10/2025, 01/09/2024, 01/09/2024, Additional history exists DTaP,Tdap,and Td Vaccines (3 - Td or Tdap) 01/05/2032 01/04/2022, 02/23/2012 Hepatitis C Screening Completed 01/01/2022, 022 Zoster Vaccines Completed 01/05/2023, 09/15/2022 Pneumococcal Vaccine: 50+ Years Completed 01/08/2023 Influenza Vaccine Completed 12/09/2024, , 01/05/2023, Additional history exists RSV Immunization Adult Patients Completed 01/19/2025 Depression Screening Completed 01/21/2025, 01/14/20 23 HIB Vaccines Aged Out No longer eligi [...] this topic Medical Devices Implanted Type Area Banana Carrier Device Identifier Shelf Expiration Date Model / Serial / Lot Neurostimulator Non Rechrg - [id number] - [id number] Implanted:Qty: 1 on 05/08/2024 by Maria De Jesus Bingham MD at [facility] Neurostim N/A: Back [employer] 02/16/2027 [id number] / [id number] / N/A Kit Tined Lead - [id number] - [id number] Implanted:Qty: 1 on 05/08/2024 by Maria De Jesus Bingham MD at [facility] Neurostim N/A: Back [employer] 03/29/2026 1201 / [id number] / N/A Procedures Procedure Name Priority Date/Time Associated Diagnosis Comments MG MAMMO DIGITAL SCREENING W DAT BILAT Routine 02/01/2025 10:56 AM EST Breast cancer screening by mammogram HM DEPRESSION SCREENING Routine 01/21/2025 CBC WITH AUTO DIFFERENTIAL Routine 01/10/2025 8:41 AM EDT Routine general medical examination at a [facility] facility COMPREHENSIVE METABOLIC PANEL Routine 01/10/2025 8:41 AM EDT Routine general medical examination at a [facility] care facility HEMOGLOBIN A1C Routine 01/10/2025 8:41 AM EDT Routine general medical examination at a [facility] facility Type 2 diabetes mellitus without complication, without long-term current use of insulin ([facility] V24, [facility] V28) LIPID PANEL Routine 01/10/2025 8:41 AM EDT Routine general medical examination at a [facility] care facility CBC AND DIFFERENTIAL Routine 01/10/2025 8:41 AM EDT Routine general medical examination at a [facility] facility HEMOGLOBIN A1C Routine 11/23/2024 3:20 PM EDT Type 2 diabetes mellitus without complication, without long-term current use of insulin ([facility] V24, [facility] V28) MICROALBUMIN CREATININE URINE RATIO Routine 06/11/2024 3:00 PM EDT Type 2 diabetes mellitus without complication, without long-term current use of insulin ([facility] V24, [facility] V28) HM HEPATITIS C SCREENING Routine 01/01/2022 from Last 3 Months or Most Recently Relevant to Health Maintenance Results * MG Mammo Digital Screening w Dat bilat (02/01/2025 10:56 AM EST) Anatomical Region Laterality Modality Breast Bilateral Mammography 02/01/2025 2:21 PM EST Impressions 02/01/2025 2:22 PM EST No evidence of breast malignancy. BI-RADS CATEGORY: 1 - NEGATIVE RECOMMENDATION: Screening bilateral mammogram is recommended in 1 year. Mammo Location: [facility], [address] [place] [address], [phone], . -------- FINAL REPORT -------- Dictated By: Shyann Melchor Dictated Date: 02/01/2025 14:21 ET Assigned Physician: Shyann Melchor Reviewed and Electronically Signed By: Shyann Melchor Signed Date: 02/01/2025 14:22 ET Workstation ID: [id number] Transcribed By: Self Edit Transcribed Date: 02/01/2025 [...] year. Mammo Location: [facility], [address] [place] [address], [id number], . -------- FINAL REPORT -------- Dictated By: Shyann Melchor Dictated Date: 02/01/2025 14:21 ET Assigned Physician: Shyann Melchor Reviewed and Electronically Signed By: Shyann Melchor Signed Date: 02/01/2025 14:22 ET Workstation ID: [id number] Transcribed By: Self Edit Transcribed Date: 02/01/2025 14:21 ET Erin Khan MD IMG BI PROCEDURES Final Res ult * Depression Screening (01/21/2025) [facility]ologist [facility] Depression Screening completed Historical Provider HEALTH MAINTENANCE Final Result * (ABNORMAL) CBC auto differential (01/10/2025 8:41 AM EDT) Pathologist [facility] WBC 6.2 4.0 - 10.5 K/mcL LAB HEMETOLOGY METHOD 01/10/2025 11:47 AM EDT [facility] RBC 4.59 4.20 - 5.40 M/mcL LAB HEMETOLOGY METHOD 01/10/2025 11:47 AM EDT [facility] Hemoglobin 13.1 12.5 - 16.0 g/dL LAB HEMETOLOGY METHOD 01/10/2025 11:47 AM EDT [facility] Hematocrit 40.1 37.0 - 47.0 % LAB HEMETOLOGY METHOD 01/10/2025 11:47 AM EDT [facility] MCV 87.2 78.0 - 100.0 FL LAB HEMETOLOGY METHOD 01/10/2025 11:47 AM EDT [facility] MCH 28.5 25.0 - 33.0 pcg LAB HEMETOLOGY METHOD 01/10/2025 11:47 AM EDT [facility] MCHC 32.6 32.0 - 36.0 g/dL LAB HEMETOLOGY METHOD 01/10/2025 11:47 AM EDT [facility] RDW 13.0 12.1 - 16.2 % LAB HEMETOLOGY METHOD 01/10/2025 11:47 AM EDT [facility] Platelets 422 150 - 450 K/mcL LAB HEMETOLOGY METHOD 01/10/2025 11:47 AM EDT [facility] MPV 7.3(L) 7.4 - 11.4 FL LAB HEMETOLOGY METHOD 01/10/2025 11:47 AM EDT [facility] Neutrophils Relative 56.6 44.0 - 74.0 % LAB HEMETOLOGY METHOD 01/10/2025 11:47 AM EDT [facility] Lymphocytes Relative 32.7 20.0 - 48.0 % LAB HEMETOLOGY METHOD 01/10/2025 11:47 AM EDT [facility] Monocytes Relative 6.9 2.0 - 12.0 % LAB HEMETOLOGY METHOD 01/10/2025 11:47 AM EDT [facility] Eosinophils Relative 3.4 0.0 - 6.0 % LAB HEMETOLOGY METHOD 01/10/2025 11:47 AM EDT [facility] Basophils Relative 0.4 0.0 - 2.0 % LAB HEMETOLOGY METHOD 01/10/2025 11:47 AM EDT [facility] Neutrophils Absolute 3.50 1.80 - 7.80 K/mcL LAB HEMETOLOGY METHOD 01/10/2025 11:47 AM EDT [facility] Lymphocytes Absolute 2.00 1.00 - 3.20 K/mcL LAB HEMETOLOGY METHOD 01/10/2025 11:47 AM EDT [facility] Monocytes Absolute 0.40 0.00 - 0.80 K/mcL LAB HEMETOLOGY METHOD 01/10/2025 11:47 AM EDT [facility] Eosinophils Absolute 0.20 0.00 - 0.50 K/mcL LAB HEMETOLOGY METHOD 01/10/2025 11:47 AM EDT [facility] Basophils Absolute 0.00 0.00 - 0.20 K/mcL LAB HEMETOLOGY METHOD 01/10/2025 11:47 AM EDT [facility] Blood Venous blood specimen / Unknown Venipuncture / Unknown 01/10/2025 8:41 AM EDT 01/10/2025 8:41 AM EDT us Erin Khan MD LAB BLOOD ORDERABLES Final Result [facility] [address] [place] [address], * Hemoglobin A1c (01/10/2025 8:41 AM EDT) Only the most recent of2 resultswithin the time period is included. Hemoglobin A1C 5.3 <5.7 % LAB CHEMISTRY METHOD 01/10/2025 12:38 PM EDT [facility] Mean Bld Glu Estim. 105 mg/dL LAB CHEMISTRY METHOD 01/10/2025 12:38 PM EDT [facility] Blood Venous blood specimen / Unknown Venipuncture / Unknown 01/10/2025 8:41 AM EDT 01/10/2025 8:41 AM EDT Narrative [facility] - 01/10/2025 12:38 PM EDT ADA Guidelines: Increased risk Diabetes Mellitus A1C 5.7 - 6.4% and Fasting Blood Glucose 100 - 125 mg/dl Diabetes Mellitus: A1C >6.5% and Fasting Blood Glucose >125 mg/dl us Erin Khan MD LAB BLOOD ORDERABLES Final Result [facility] [address] [place] [address], * Lipid panel (01/10/2025 8:41 AM EDT) Cholesterol 158 0 - 200 mg/dL LAB CHEMISTRY METHOD 01/10/2025 11:42 AM T [facility] Triglycerides 102 <150 mg/dL LAB CHEMISTRY METHOD 01/10/2025 11:42 AM EDT [facility] HDL 65 37 - 92 mg/dL LAB CHEMISTRY METHOD 01/10/2025 11:42 AM EDT [facility] LDL Calculated 73 50 - 130 mg/dL LAB CHEMISTRY METHOD 01/10/2025 11:42 AM EDT [facility] VLDL Cholesterol Rambo 20.4 mg/dL LAB CHEMISTRY METHOD 01/10/2025 11:42 AM EDT [facility] Comment:No established refer ence range. Blood Venous blood specimen / Unknown Venipuncture / Unknown 01/10/2025 8:41 AM EDT 01/10/2025 8:41 AM EDT us Erin Khan MD LAB BLOOD ORDERABLES Final Result [facility] [address] [place] [address], [place] [phone] * (ABNORMAL) Comprehensive metabolic panel (01/10/2025 8:41 AM EDT) Sodium 139 135 - 145 mmol/L LAB CHEMISTRY METHOD 01/10/2025 11:42 AM EDT [facility] Potassium 4.3 3.5 - 5.1 mmol/L LAB CHEMISTRY METHOD 01/10/2025 11:42 AM EDT [facility] Chloride 103 98 - 107 mmol/L LAB CHEMISTRY METHOD 01/10/2025 11:42 AM EDT [facility] CO2 29 24 - 32 mmol/L LAB CHEMISTRY METHOD 01/10/2025 11:42 AM EDT [facility] Anion Gap 7 5 - 14 LAB CHEMISTRY METHOD 01/10/2025 11:42 AM EDT [facility] Glucose 86 70 - 99 mg/dL LAB CHEMISTRY METHOD 01/10/2025 11:42 AM EDT [facility] BUN 14 7 - 17 mg/dL LAB CHEMISTRY METHOD 01/10/2025 11:42 AM EDT [facility] Creatinine 0.50 0.50 - 1.00 mg/dL LAB CHEMISTRY METHOD 01/10/2025 11:42 AM EDT [facility] eGFR 110 >=60 mL/min/1. 73m2 LAB CHEMISTRY METHOD 01/10/2025 11:42 AM EDT [facility] Comment:Calculation based on the Chronic Kidney Disease Epidemiology Collaboration (CKD-EPI) equation refit without adjustment for race. BUN/Creatinine Ratio 28.0(H) 12.0 - 20.0 LAB CHEMISTRY METHOD 01/10/2025 11:42 AM EDT [facility] Calcium 9.2 8.4 - 10.2 mg/dL LAB CHEMISTRY METHOD 01/10/2025 11:42 AM EDT [facility] AST (SGOT) 16 5 - 40 unit/L LAB CHEMISTRY METHOD 01/10/2025 11:42 AM EDT [facility] ALT (SGPT) 21 7 - 52 unit/L LAB CHEMISTRY METHOD 01/10/2025 11:42 AM EDT [facility] Alkaline Phosphatase 48 34 - 104 unit/L LAB CHEMISTRY METHOD 01/10/2025 11:42 AM EDT [facility] Total Protein 6.8 6.4 - 8.5 g/dL LAB CHEMISTRY METHOD 01/10/2025 11:42 AM EDT [facility] Albumin 4.3 3.5 - 5.0 g/dL LAB CHEMISTRY METHOD 01/10/2025 11:42 AM EDT [facility] Total Bilirubin 0.3 0.3 - 1.0 mg/dL LAB CHEMISTRY METHOD 01/10/2025 11:42 AM EDT [facility] Blood Venous blood specimen / Unknown Venipuncture / Unknown 01/10/2025 8:41 AM EDT 01/10/2025 8:41 AM EDT us Erin Khan MD LAB BLOOD ORDERABLES Final Result [facility] [address] [place] [address], [place] [phone] * Microalbumin creatinine urine ratio (06/11/2024 3:00 PM EDT) Creatinine, Urine 48.9 mg/dL LAB CHEMISTRY METHOD 06/11/2024 10:13 PM EDT [facility] Comment:No established refer ence range. Microalb, Ur <7.0 mg/L LAB CHEMISTRY METHOD 06/11/2024 10:13 PM EDT [facility] Comment:No established refer ence range. Microalb/Creat Ratio <14 <30 mg/g creat LAB CHEMISTRY METHOD 06/11/2024 10:13 PM EDT [facility] Comment:Concentrations outsi de detection limits, unable to calculate ratio. Urine Urine specimen obtained by clean catch procedure / Unknown Non-blood Collection / Unknown 06/11/2024 3:00 PM EDT 06/11/2024 3:00 PM EDT Erin Khan MD LAB URINE ORDERABLES Final Result [facility] [address] [place] [address], [place] [phone] * Hepatitis C Screening (01/01/2022) Hepatitis C Screening abstracted Historical Provider HEALTH MAINTENANCE Final Result from Last 3 Months or Most Recently Relevant to Health Maintenance Insurance [facility] Advance Directives * Full Code - Default [...] currently active code status orders. Care Teams Environmental Science Program Director Relationship Specialty Start Date End Date Erin Khan MD [address] [place] [address] PCP - General 10/04/21
--- OUTSIDE RECORDS SUMMARY | 2025-02-04 12:22 | XMS_ITS | Clinical Summary ---
Author Organization [facility] Address [address] [place] [address] Care Team Providers Care City Solicitor Name Role Phone Erin Khan MD Primary Care Provider Unav ailable Allergies Active Allergy Reactions Criticality Noted Date Comments Clarithromycin Other (See Comments) 06/08/2019 Pgpcxgljctb-Rgzzeuyxe-Vpqvqe Other (See Comments) 08/31/2021 Ipratropium 10/12/2021 Medications [...] Active trospium ER (SANTURA XR) 60 MG [id number]:Urin lacey frequency,Urgency of urination Take 1 caplet [...] for cough. 21 capsule 0 01/18/2024 Active Problems Problem Noted Date Diagnosed Date [...] Additional history exists BMI Counseling 08/03/2024 08/04/2023, 04/10/2022, 09/09/2021, Additional history exists COVID-19 Vaccine ( [...] age to complete this topic Care Teams City Solicitor Relationship Specialty Start Date End Date Erin Khan MD PCP - General Internal Medicine 10/04/21
--- OUTSIDE RECORDS SUMMARY | 2025-02-04 12:22 | XMS_ITS | Clinical Summary ---
Author Organization [facility] Address [address] [place] [address] Care Team Providers Care Hardware Installer Name Role Phone Erin Khan Primary Care Provider [phone] Allergies Active Allergy Reactions Criticality Noted Date Comments Clarithromycin Other (see comments) 06/08/2019 Wfnadvezooh-Ulwjnwgid-Kuzomgby Other (see comments) 11/12/2021 Ipratropium 10/12/2021 Medications [...] both of which are available online on [employer]. Patient can take a teaspoon of either [...] treatments. She is being followed by her blast furnace helper in this regard. Chronic cough 11/12/2021 Assessment [...] complete this topic Insurance R Care Teams Hardware Installer Relationship Specialty Start Date End Date Erin Khan PCP - General Family Medicine 02/12/22
--- OUTSIDE RECORDS SUMMARY | 2025-02-04 12:22 | XMS_ITS | Encounter Summary ---
Author Organization [facility] Address [address] [place] [id number] Care Team Providers Care Intensive Care Specialist Name Role Phone Erin Khan MD Primary Care Provider [phone] Encounter Details Date Type Department Care Team (Late st Contact Info) Description 11/05/2021 Scanned Document [facility] [address] [place] [address] Provider, MD Damien [address] [place] [address] Social History Tobacco Use Types Packs/Day Years [...] on filedocumented in this encounter Care Teams Intensive Care Specialist Relationship Specialty Start Date End Date Erin Khan MD PCP - General Family Medicine 10/29/21 documented as of this encounter
--- OUTSIDE RECORDS SUMMARY | 2025-02-04 12:22 | XMS_ITS | Encounter Summary ---
Author Organization [facility] Address [address] [place] [address] Care Team Providers Care Dry Chain Worker Name Role Phone Erin Khan MD Primary Care Provider [phone] Encounter Details Date Type Department Care Team (Late st Contact Info) Description 01/07/2024 Scanned Document [address] [place] [phone] Provider, Generic Social History Tobacco Use Types [...] on filedocumented in this encounter Care Teams Dry Chain Worker Relationship Specialty Start Date End Date Erin Khan MD PCP - General Family Medicine 10/29/21 documented as of this encounter
--- OUTSIDE RECORDS SUMMARY | 2025-02-04 12:22 | XMS_ITS | Clinical Summary ---
Author Organization Formerly [facility] Address [address] [place] [address] Care Team Providers Care Visual Coordinator Name Role Phone Erin Khan MD Primary Care Provider [phone] Allergies Active Allergy Reactions Criticality Noted Date Comments Clarithromycin Other (See Comments) 06/08/2019 Unknown Medications fenofibrate (TRIGLIDE) 160 MG tablet fenofibrate Active lamoTRIgine ER 300 MG Tablet SR 24 hr lamotrigine Active simvastatin (ZOCOR) 20 MG tablet simvastatin Active albuterol (PROVENTIL) (0.083%) 2.5 mg/3 mL nebulizer solution albuterol sulfate 2.5 mg/3 mL (0.083 %) solution for nebulization 3 ml nebulizer once Active ipratropium-alb uterol (DUONEB) 0.5-2.5 mg/3 mL nebulizer solution ipratropium 0.5 mg-albuterol 3 mg (2.5 mg base)/3 mL nebulization soln 3 ml nebulizer once Active metFORMIN (GLUCOPHAGE-XR) 500 MG 24 hr tablet Take 500 mg by mouth every morning with breakfast. 09/24/19 22 Active Mounjaro 5 MG/0.5ML pen-injector INJECT 1 SYRINGE SUBCUTANEOUSLY ONCE A WEEK Active buPROPion (WELLBUTRIN XL) 300 MG 24 hr tablet Active buPROPion (WELLBUTRIN XL) 150 MG 24 hr tablet 10/03/19 24 Active trospium (SANCTURA XR) 60 MG extended release capsule Take 60 mg by mouth. Active Ingrezza 40 MG tablet 10/27/19 24 Active carBAMazepine (TEGretol) 200 MG tablet 09/05/19 24 Active aspirin enteric coated (ECOTRIN LOW STRENGTH) 81 MG EC tablet Take 81 mg by mouth daily. Active Multiple Vitamins-Minera ls (OCUVITE PO) Take by mouth. Active Multiple Vitamins-Minera ls (ONE-A-DAY WOMENS 50 PLUS PO) Take by mouth. Activ e predniSONE (DELTASONE) 20 MG tabletIndicatio ns:Acute cough,Bronchiti s Take 2 tablets (40 mg total) by mouth daily. With food. 10 tablet 01/07/20 24 Active PANTOprazole (PROTONIX) 40 MG EC tabletIndicatio ns:Gastroesopha geal reflux disease, unspecified whether esophagitis present TAKE 1 TABLET BY MOUTH TWICE DAILY BEFORE BREAKFAST AND DINNER 180 tablet 11/17/19 25 Active Active Problems Problem Noted Date Diagnosed [...] to refer to surgeon Obtain GI records [facility] Cough in adult patient 10/30/2021 Assessment & Plan (12/02/2021 8:58 AM EDT): Recent viral illness CXR unremarkable Tried cough suppressants, oral steroids, nebulizer treatments, cough syrup with codeine. Following with Pulmonology and referred to ENT Maximized PPI and H2 jason CT chest pending EGD with perez, surgeon referral Assessment & Plan (10/30/2021 12:25 PM EDT): Recent viral illness CXR unremarkable Tried cough suppressants, oral steroids, nebulizer treatments, cough syrup with codeine. Following with Pulmonology and referred to ENT Maximized PPI and H2 jason Colon cancer screening 10/30/2021 Assessment & Plan (11/27/2021 3:43 PM EDT): Colon 2018 at [facility], recall 10 yrs Assessment & Plan (10/30/2021 12:24 PM EDT): Colon 2018 at [facility], recall 10 yrs Constipation 10/30/2021 Assessment & Plan (11/27/2021 3:43 PM EDT): High fiber diet Miralax and colace as needed Can increase miralax as needed Assessment & Plan (10/30/2021 12:30 PM EDT): High fiber diet Miralax and colace as needed Can increase miralax as needed Family History Medical History Relation Name Comments [...] 01/24/2021, Additional history exists Colonoscopy 03/13/2028 03/13/2018 RSV Vaccine 50 years and old er and Patients (1 - 1-dose 75+ series) 06/13/2042 Procedures Procedure Name Priority Date/Time Associated Diagnosis Comments HX GASTROENTEROLOGY COLONOSCOPY-SCAN Routine 03/13/2018 from Last 3 Months or Most Recently Relevant to Health Maintenance Results * HX GASTROENTEROLOGY COLONOSCOPY-SCAN (03/13/2018) us Scan Gastroenterology HX AMB PROCEDURES Final Re sult from Last 3 Months or Most Recently Relevant to Health Maintenance Insurance [facility] Care Teams Visual Coordinator Relationship Specialty Start Date End Date Erin Khan MD PCP - General Family Medicine 10/29/21
--- OUTSIDE RECORDS SUMMARY | 2025-02-04 12:22 | XMS_ITS | Encounter Summary ---
Author Organization [facility] Address [address] [place] [id number] Care Team Providers Care Anthropologist Name Role Phone Mónica Diaz MD Primary Care Provider [phone] Erin Khan MD Primary Care Provider [phone] Encounter Details Date Type Department Care Team (Late st Contact Info) Description 06/15/2019 Scanned Document [facility] General Surgery [address] [phone] Gastroenterology, Scan Social History Tobacco Use Types [...] on filedocumented in this encounter Care Teams Anthropologist Relationship Specialty Start Date End Date Mónica Diaz MD [address] [place] [address] PCP - General 05/30/19 10/28/21 Erin Khan MD [address] [place] [address] PCP - General Family Medicine 10/29/21 documented as of this encounter
--- OUTSIDE RECORDS SUMMARY | 2025-02-04 12:22 | XMS_ITS | Encounter Summary ---
Author Organization [facility] Address [address] [place] [address] Care Team Providers Care Body Specialist Name Role Phone Erin Khan MD Primary Care Provider [phone] Encounter Details Date Type Department Care Team (Late st Contact Info) Description 01/07/2024 Scanned Document [address] [place] [phone] Provider, Generic Social History Tobacco Use Types [...] on filedocumented in this encounter Care Teams Body Specialist Relationship Specialty Start Date End Date Erin Khan MD PCP - General Family Medicine 10/29/21 documented as of this encounter
== END 2025-02-04 10:33 | disposition home or self-care (01) ==
LOC: HO.HMGAL 10:33
PROVIDERS: PCP Internal Medicine; Visit Provider Registered Nurse Emergency
DX: J30.89 Other allergic rhinitis (principal)
CPT/HCPCS: 95117; 95165